=== PATIENT | female | born 1940 | race Caucasian/White ===

== ENCOUNTER 2024-05-23 11:22 | Inpatient (IN) | payer MEDICARE, MEDICAID, SELFPAY ==
[2024-05-23] VITALS (15 sets, daily range): BP systolic 115–142; BP diastolic 52–88; PULSE 73–109; RESP 16–98; TEMP 36.6–36.7; O2SAT 93–100; BMI 30.2
--- NOTE | 2024-05-23 11:45 | PC.NURSE ---
Patient brief changed, soiled of large black stool, clean dry brief applied and patient placed in POC, call light placed within reach, provider made aware of black stool.
--- NOTE | 2024-05-23 11:56 | EKG_ITS ---
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
[2024-05-23 12:20] LABS: OBG Card Lot # 20632; OBG Performed By BOTED; OBG QC OK? Yes; OBS Developer Lot # 124; OBS Performed By BOTED; OBS QC OK? Yes; Occult Blood, Stool Positive (Negative)
[2024-05-23 12:21] LABS: Occult Blood, Gastric Positive (Negative)
--- NOTE | 2024-05-23 12:45 | PD.EDADULT ---
ED General RME/HPI General Chief complaint: Nausea/Vomiting/Diarrhea Stated complaint: NAUSEA/VOMITING Arrival date/time: 05/23/24 11:22 RME / HPI RME / HPI narrative: Patient is 83 years old female with past medical history of hypertension, chronic A-fib on Eliquis, type 2 diabetes, COPD presented to the ED from SNF due to upper and lower GI bleeding. Per EMS patient developed bloody emesis and melena today morning. No other information is available. Patient is on Eliquis for chronic A-fib. She is somnolent and reports abdominal pain throughout. She denies fever, chills, chest pain, shortness of breath. POLST form is present with the patient and states she is DNR/DNI with selective treatment. Related Data Home Medications ?Medication ?Instructions ?Recorded ?Confirmed Lactobacillus rhamnosus GG 10 1 cap PO QDAY #0 caps 05/02/16 01/04/21 billion cell capsule (Culturelle) insulin glargine 100 unit/mL 18 unit subcut QAM #0 vials 05/02/16 01/04/21 subcutaneous solution (Lantus U-100 Insulin) nitroglycerin 0.4 mg sublingual 0.4 mg SL PRN PRN Chest Pain #0 05/02/16 01/04/21 tablet (Nitrostat) tabs digoxin 125 mcg (0.125 mg) tablet 125 mcg PO UD ##0 10/14/16 01/04/21 hydrocodone 7.5 mg-acetaminophen 1 tab PO Q6H PRN Pain #0 tabs 10/14/16 01/04/21 300 mg tablet acetaminophen 325 mg tablet 650 mg PO Q6H PRN pain or fever 01/04/21 01/04/21 (Tylenol) cranberry extract 425 mg capsule 425 mg PO QDAY 01/04/21 01/04/21 docusate sodium 250 mg capsule 250 mg PO BID 01/04/21 01/04/21 ferrous sulfate 325 mg (65 mg 325 mg PO BID 01/04/21 01/04/21 iron) tablet insulin lispro 100 unit/mL 10 unit subcut USEASDIRECTD 01/04/21 01/04/21 subcutaneous solution (Humalog U-100 Insulin) magnesium hydroxide 400 mg/5 mL 30 ml PO Q72H PRN Constipation 01/04/21 01/04/21 oral suspension (Milk of Magnesia) metformin 1,000 mg tablet 1,000 mg PO BID 01/04/21 01/04/21 sodium chloride 0.65 % nasal spray 2 spray intranasal BID 01/04/21 01/04/21 aerosol (Saline Nasal Mist) sodium phosphates 19 gram-7 118 ml AK Q72H PRN Constipation 01/04/21 01/04/21 gram/118 mL enema (Fleet Enema) trolamine salicylate 10 % topical 1 applic topical Q4H PRN knee pain 01/04/21 01/04/21 cream (Aspercreme) verapamil 240 mg tablet,extended 240 mg PO QDAY 01/04/21 01/04/21 release Previous Rx's ?Medication ?Instructions ?Recorded apixaban 2.5 mg tablet (Eliquis) 2.5 mg PO BID #30 tabs 01/10/21 verapamil 120 mg tablet,extended 240 mg (2 x 120 mg) PO QDAY #60 01/10/21 release tabs Allergies Allergy/AdvReac Type Severity Reaction Status Date / Time warfarin AdvReac Mild PT Verified 01/04/21 10:21 EXPERIENCE BLEEDING WITH COUMADIN Review of Systems Review of Systems Systems Reviewed: All systems reviewed, normal except as documented ED Exam Narrative Physical exam: Gen: Well-developed and well-nourished elderly female. HEENT: NCAT, PERRLA, EOMI, MMM, anicteric conjunctivae, blood in oral cavity. CVS: normal S1 and S2. Irregularly irregular. No M/R/G. Resp: CTA B/L. No rhonchi, rales, crackles or wheezing. Abd: soft, tender throughout, non-distended. BS+ in all 4 quadrants. MSK: Good ROM in BUE & BLE. No edema or rash. Neuro: CN II-XII grossly intact. Strength 5/5 in BUE & BLE. Alert and oriented x1 to self. Course Quality Measures none Orders Category Date Time Status Admit to Inpatient Status Routine Admission 05/23/24 16:19 Active Patient Condition Routine Admission 05/23/24 16:19 Ordered Aspiration precautions ONCE Care 05/23/24 16:32 Active COVID-19 Screening Questionnaire NOW Care 05/23/24 15:49 Active Continuous Pulse Oximetry NOW Care 05/23/24 16:19 Completed Decision to Admit X1 Care 05/23/24 15:49 Completed EKG (ED ONLY) *Do not use* NOW Care 05/23/24 11:56 Completed In and Out Catheter X1 Care 05/23/24 14:08 Completed Insert IV NOW Care 05/23/24 13:01 Active NPO NOW Care 05/23/24 16:21 Active Notify provider NEEDED Care 05/23/24 16:19 Active Post Transfusion H&H X1 Care 05/23/24 15:58 Active Sequential Compression Device QSHIFT Care 05/23/24 16:24 Active Transfuse,blood/blood products NOW Care 05/23/24 15:58 Active Consult to Gastroenterology Stat Cons 05/23/24 13:44 Ordered Diet NPO (NOW) Diet 05/23/24 16:21 Active EKG (ED Only) Stat Exams 05/23/24 11:56 Draft XR chest 1V Stat Exams 05/23/24 13:17 Completed Blood Culture (Lab) Stat Lab 05/23/24 13:15 Received CBC AM DRAW Lab 05/24/24 05:00 Ordered CBC AM DRAW Lab 05/25/24 05:00 Ordered CBC AM DRAW Lab 05/26/24 05:00 Ordered CBC Stat Lab 05/23/24 12:50 Completed CMP [Comprehensive Metabolic Panel] Stat Lab 05/23/24 12:50 Completed Hemoglobin and Hematocrit Stat Lab 05/23/24 15:43 Completed INR [Prothrombin Time with INR] Stat Lab 05/23/24 12:50 Completed Lactate (Lactic Acid) Stat Lab 05/23/24 12:50 Completed Lactic Acid [Lactate (Lactic Acid)] Q3H Lab 05/23/24 19:29 Ordered Lactic Acid [Lactate (Lactic Acid)] Q3H Lab 05/23/24 22:29 Ordered Lactic Acid [Lactate (Lactic Acid)] Q3H Lab 05/24/24 01:29 Ordered Lactic Acid [Lactate (Lactic Acid)] Q3H Lab 05/24/24 04:29 Ordered Lactic Acid [Lactate (Lactic Acid)] Q3H Lab 05/24/24 07:29 Ordered Lactic Acid, 3 HR Stat Lab 05/23/24 17:12 Received Magnesium AM DRAW Lab 05/24/24 05:00 Ordered Magnesium [Magnesium] Stat Lab 05/23/24 12:50 Completed Occult Blood, Gastric (LAB) Stat Lab 05/23/24 12:00 Completed Occult Blood, Stool (LAB) Stat Lab 05/23/24 12:00 Completed PTT [Partial Thromboplastin Time] Stat Lab 05/23/24 12:50 Completed Renal Function Panel AM DRAW Lab 05/24/24 05:00 Ordered Renal Function Panel AM DRAW Lab 05/25/24 05:00 Ordered Renal Function Panel AM DRAW Lab 05/26/24 05:00 Ordered Troponin I Q6H Lab 05/23/24 17:12 Received Troponin I Q6H Lab 05/23/24 23:00 Ordered Troponin I Stat Lab 05/23/24 12:50 Completed Type and Screen Stat Lab 05/23/24 12:50 Results Urinalysis Stat Lab 05/23/24 14:06 Completed Urine Culture Routine Lab 05/23/24 16:25 Ordered rbc [Red Blood Cells] Stat Lab 05/23/24 12:50 Results Acetaminophen Supp [Tylenol Supp] Med 05/23/24 16:19 Active 650 mg AK Q6HR PRN Albuterol/Ipratr Rt Marina [Duoneb Rt Marina] Med 05/23/24 16:31 Discontinued 5 ml INH X1 ONE Magnesium Sulfate 4 GM Ivpb [Magnesium Sulfate Ivpb] Med 05/23/24 16:29 Active 4 gm in 50 ml IV X1 Ondansetron Inj [Zofran Inj] Med 05/23/24 16:19 Active 4 mg IV Q6H PRN Pantoprazole Inj [Protonix Inj] Med 05/23/24 21:00 Active 40 mg IVP Q12HR Pantoprazole/Ns 80Mg IV Premix [Protonix/NS 80mg IV Med 05/23/24 12:40 Active Premix] 80 mg in 100 ml IV X1 Pantoprazole/Ns 80Mg IV Premix [Protonix/NS 80mg IV Med 05/23/24 12:40 Discontinued Premix] 80 mg in 100 ml IV X1 Ringers Lactated 1000 ml [Lactated Ringers] 1,000 ml Med 05/23/24 16:22 Active IV 75 mls/hr Sodium Chloride 0.9% 1000 ml [Ns] 1,000 ml Med 05/23/24 13:14 Discontinued IV 999 mls/hr Sodium Chloride 0.9% [Ns] 100 ml Med 05/24/24 12:45 Pending Octreotide Acet Inj [SandoSTATIN Inj] 1,000 mcg IV 50 mcg/hr cefTRIAXone [Rocephin] 1,000 mg Med 05/23/24 13:45 Discontinued SODIUM CHLORIDE 0.9% (Popper) [Ns 0.9% (P)] 50 ml IV X1 Code Status Routine Oth 05/23/24 16:19 Ordered Oxygen Delivery DAILY RT 05/23/24 16:21 Active Vital Signs Vital signs: Vital Signs Temperature 98.1 F 05/23/24 11:38 Pulse Rate 109 H 05/23/24 11:38 Respiratory Rate 18 05/23/24 11:38 Blood Pressure 129/68 05/23/24 11:38 Pulse Oximetry (%) 98 05/23/24 11:38 Oxygen Delivery Method Room Air 05/23/24 11:38 [facility] Patient data External records reviewed:: [facility] previous records, EMS form and Group Home records Clinical information provided by:: patient Social determinants that could affect healthcare access:: none Patient has the following chronic illnesses:: hypertension, chronic A-fib on Eliquis, type 2 diabetes, COPD How is presenting disease/condition affected by chronic disease/condition?: exacerbated by Evaluation data The following diagnostics were reviewed and interpreted by me:: lab results, radiology exam(s) and EKG tracing(s) Lab and/or radiology exams considered but not ordered:: CT abdomen angio Interpretation Summary: Severe blood loss anemia, lactic acidosis of 11, hyperkalemia, BUN 110, ELBA, troponinemia, UTI, Afib with RVR. Medications Medications considered but not ordered:: na Medication administrations:: Medication Administration History Acetaminophen (Acetaminophen Supp 650 Mg Supp) 650 mg AK Q6HR PRN PRN Reason: Fever > 100.4 Stop: 06/22/24 16:18 Pantoprazole Sodium (Protonix/Ns 80mg Iv Premix) 80 mg in 100 mls @ 10 mls/hr IV X1 ONE Stop: 05/23/24 22:39 Last Admin: 05/23/24 13:39 Dose: 10 mls/hr Documented By: YUKI Magnesium Sulfate (Magnesium Sulfate Ivpb) 4 gm in 50 mls @ 12.5 mls/hr IV X1 ONE Stop: 05/23/24 20:28 Last Admin: 05/23/24 16:43 Dose: 12.5 mls/hr Documented By: YUKI Octreotide Acetate 1,000 mcg/ (Sodium Chloride) 102 mls @ 5.1 mls/hr IV .Q20H ROCK; Protocol Stop: 06/23/24 12:44 Lactated Ringer's (Lactated Ringers) 1,000 mls @ 75 mls/hr IV .[id number] ONE Stop: 05/24/24 05:41 Octreotide Acetate 1,000 mcg/ (Sodium Chloride) 102 mls @ 5.1 mls/hr IV .Q20H ONE; Protocol Stop: 05/24/24 12:44 Ceftriaxone Sodium/Dextrose (Rocephin/D5w 1gm Iv Premix) 1 gm in 50 mls @ 100 mls/hr IV QDAY ROCK Stop: 05/31/24 08:59 Ondansetron HCl (Ondansetron Inj 2 Mg/Ml Inj 2 Ml) 4 mg IV Q6H PRN; Protocol PRN Reason: NAUSEA OR VOMITING Stop: 06/22/24 16:18 Pantoprazole Sodium (Pantoprazole Inj 40 Mg Vial) 40 mg IVP Q12HR ROCK Stop: 06/22/24 20:59 Discontinued Medications Albuterol/Ipratropium (Albuterol/Ipratropium (Duoneb) Rt Marina 3 Ml Nebu) 5 ml INH X1 ONE Stop: 05/23/24 16:32 Last Admin: 05/23/24 16:40 Dose: 5 ml Documented By: MERT Pantoprazole Sodium (Protonix/Ns 80mg Iv Premix) 80 mg in 100 mls @ 400 mls/hr IV X1 ONE Stop: 05/23/24 12:54 Last Infusion: 05/23/24 13:39 Dose: Infused Documented By: Admin: 05/23/24 13:20 Dose: 400 mls/hr Documented By: YUKI Ceftriaxone Sodium 1,000 mg/ (Sodium Chloride) 50 mls @ 100 mls/hr IV X1 ONE Stop: 05/23/24 14:14 Last Infusion: 05/23/24 14:51 Dose: Infused Documented By: Admin: 05/23/24 13:42 Dose: 100 mls/hr Documented By: YUKI Sodium Chloride (Ns) 1,000 mls @ 999 mls/hr IV .Q1H1M ONE Stop: 05/23/24 14:14 Last Infusion: 05/23/24 14:51 Dose: Infused Documented By: Admin: 05/23/24 13:32 Dose: 999 mls/hr Documented By: DB as above Consultations Consultation(s) initiated? (list below): Yes Consultation #1 (Physician, Specialty, Details): Dr. Knight, GI, GI bleeding. Diagnosis Differential Diagnosis ED Complaint MDM: Ischemic colitis, gastric ulcer, esophageal tear Most likely diagnosis given after review of the tests above:: Ischemic colitis Admission Indicated Admission indicated?: indicated Explain why admission is indicated or not indicated:: Patient developed significant blood loss anemia requiring blood transfusion. Due to bloody emesis and melena she also needs GI evaluation and workup to establish source of bleeding. Patient's CODE STATUS is DNR/DNI with selective treatment therefore admission will be done to medical floor. Admission Request Was there a request for admission?: Yes Admission Attestation Admission request attestation: Discussed case with [] from Hospitalist service regarding admission. Discussed patients ED course, exam findings, labs, and radiology results. The Hospitalist [agrees,declines] to accept the patient for admission. Disposition Plan Disposition Plan: Admit Medical Decision Making MDM Narrative MDM Narrative: The patient is an 83-year-old female with a history of hypertension, chronic atrial fibrillation on Eliquis, type 2 diabetes, and COPD, who presented from her senior care facility (SNF) with upper and lower gastrointestinal bleeding. Per EMS report, the patient developed bloody emesis and melena this morning. She is somnolent and reports abdominal pain throughout but denies fever, chills, chest pain, or shortness of breath. The patient has a POLST form indicating DNR/DNI status with selective treatment. Physical examination revealed blood in the oral cavity, somnolence, abdominal tenderness, and irregularly irregular heart rhythm. Workup demonstrated severe blood loss anemia, lactic acidosis (11), hyperkalemia, elevated BUN (110) with acute kidney injury (ELBA), troponinemia, urinary tract infection (UTI), and atrial fibrillation with rapid ventricular response (RVR). The patient requires blood transfusion to address severe anemia. GI evaluation is necessary to identify and manage the source of bleeding. This will include imaging and possible endoscopic procedures, as guided by the gastroenterology. Given the patient's DNR/DNI status, care will focus on selective treatment and stabilization, avoiding invasive or aggressive measures. The plan will be discussed with the family and SNF to ensure alignment with her goals of care. Admission to the medical floor for close monitoring, blood transfusion, GI workup, and further management of her complex clinical presentation. The patient and her family will be kept informed of her condition and treatment plan, and all interventions will remain consistent with her stated goals of care. Differential Diagnosis Differential Diagnosis: Ischemic colitis, gastric ulcer, esophageal tear Lab Data 05/23/24 15:43 05/23/24 12:50 Labs: Lab Results 05/23/24 05/23/24 05/23/24 Range/Units 12:00 12:50 14:06 WBC 10.3 (3.6-11.0) Thou/mm3 RBC 2.39 L (4.00-5.20) Miln/mm3 Hgb 7.9 L (12.0-16.0) g/dL Hct 25.1 L (36.0-46.0) % MCV 105 H (80-100) fL MCH 33.1 (25.0-35.0) pg MCHC 31.5 (31.0-37.0) g/dl RDW Std Deviation 55.6 H (36.4-46.3) fL Plt Count 187 (140-440) Thou/mm3 Neut % (Auto) 77 (37-80) % Lymph % (Auto) 13 (10-50) % [place] % (Auto) 9 (0-12) % Eos % (Auto) 0 (0-10) % Baso % (Auto) 0 (0-2.5) % Neut # (Auto) 8.0 H (1.8-7.7) Thou/mm3 Lymph # (Auto) 1.3 (1.0-4.8) Thou/mm3 [place] # (Auto) 1.0 H (0.0-0.8) Thou/mm3 Eos # (Auto) 0.0 (0.0-0.5) Thou/mm3 Baso # (Auto) 0.0 (0.0-0.2) Thou/mm3 Immature Gran # (Auto) 0.08 H (0.00-0.00) Thou/mm3 Absolute Nucleated RBC 0.00 (0.00-0.00) Thou/mm3 Immature Gran % 1 H (0-0) % Nucleated RBC % 0 (0) /100 WBC PT 11.7 (9.0-12.2) Seconds INR 1.1 (0.9-1.3) APTT 26.1 (22.0-36.0) Seconds Sodium 143 (136-145) mMol/L Potassium 5.2 H (3.4-5.1) mMol/L Chloride 98 (98-107) mMol/L Carbon Dioxide 23.3 (20.0-31.0) mMol/L Anion Gap 22 H (7-16) BUN 110 H* (9-23) mg/dL Creatinine 1.9 H (0.6-1.3) mg/dL Estim Creat Clear Calc 20.9 L (>60) mL/min eGFR 26 L (60 - ) See Note BUN/Creatinine Ratio 58 H (12-20) Ratio Glucose 134 H (74-106) mg/dL Calculated Osmolality 321 H (275-295) Lactic Acid 11.0 H* (0.4-2.0) mMol/L Calcium 10.7 H (8.3-10.6) mg/dL Corrected Calcium 10.9 H (8.5-10.1) mg/dL Magnesium 1.6 (1.6-2.6) mg/dL Total Bilirubin 0.3 (0.3-1.2) mg/dL AST 20 (0-34) U/L ALT 12 (10-49) U/L Alkaline Phosphatase 52 (46-116) U/L Troponin I 0.054 H* (0.0-0.045) ng/mL Total Protein 6.1 (5.7-8.2) gm/dL Albumin 3.8 (3.4-4.8) gm/dL Globulin 2.3 (2.3-3.5) gm/dL Albumin/Globulin Ratio 1.7 (1.2-2.2) Ur Collection Type Catheter Urine Color Lt-Yellow (Lt Yel-Yel) Urine Clarity Cloudy A (Clear/Hazy) Urine pH 5.0 (5.0-7.0) Ur Specific [place] 1.011 (1.001-1.035) Urine Protein Negative (Neg - Trace) Urine Glucose (UA) Negative (Negative) Urine Ketones Trace (Negative) Urine Blood 1+ A (Negative) Urine Nitrite Negative (Negative) Urine Bilirubin Negative (Negative) Urine Urobilinogen (Auto) Negative (0.0-1.0) mg/dL Ur Leukocyte Esterase Positive (Negative) Urine RBC 3 (0-3) /hpf Urine WBC 911 H (0-5) /hpf Ur Squamous Epith Cells 1 (0-5) /hpf Urine Bacteria Rare (None) Gastric Occult Blood Positive A (Negative) Stool Occult Blood Positive A (Negative) Blood Type A Positive Antibody Screen NEGATIVE Blood Bank Wristband ID Yes 05/23/24 Range/Units 15:43 WBC (3.6-11.0) Thou/mm3 RBC (4.00-5.20) Miln/mm3 Hgb 6.8 L* (12.0-16.0) g/dL Hct 21.1 L* (36.0-46.0) % MCV (80-100) fL MCH (25.0-35.0) pg MCHC (31.0-37.0) g/dl RDW Std Deviation (36.4-46.3) fL Plt Count (140-440) Thou/mm3 Neut % (Auto) (37-80) % Lymph % (Auto) (10-50) % [place] % (Auto) (0-12) % Eos % (Auto) (0-10) % Baso % (Auto) (0-2.5) % Neut # (Auto) (1.8-7.7) Thou/mm3 Lymph # (Auto) (1.0-4.8) Thou/mm3 [place] # (Auto) (0.0-0.8) Thou/mm3 Eos # (Auto) (0.0-0.5) Thou/mm3 Baso # (Auto) (0.0-0.2) Thou/mm3 Immature Gran # (Auto) (0.00-0.00) Thou/mm3 Absolute Nucleated RBC (0.00-0.00) Thou/mm3 Immature Gran % (0-0) % Nucleated RBC % (0) /100 WBC PT (9.0-12.2) Seconds INR (0.9-1.3) APTT (22.0-36.0) Seconds Sodium (136-145) mMol/L Potassium (3.4-5.1) mMol/L Chloride (98-107) mMol/L Carbon Dioxide (20.0-31.0) mMol/L Anion Gap (7-16) BUN (9-23) mg/dL Creatinine (0.6-1.3) mg/dL Estim Creat Clear Calc (>60) mL/min eGFR (60 - ) See Note BUN/Creatinine Ratio (12-20) Ratio Glucose (74-106) mg/dL Calculated Osmolality (275-295) Lactic Acid (0.4-2.0) mMol/L Calcium (8.3-10.6) mg/dL Corrected Calcium (8.5-10.1) mg/dL Magnesium (1.6-2.6) mg/dL Total Bilirubin (0.3-1.2) mg/dL AST (0-34) U/L ALT (10-49) U/L Alkaline Phosphatase (46-116) U/L Troponin I (0.0-0.045) ng/mL Total Protein (5.7-8.2) gm/dL Albumin (3.4-4.8) gm/dL Globulin (2.3-3.5) gm/dL Albumin/Globulin Ratio (1.2-2.2) Ur Collection Type Urine Color (Lt Yel-Yel) Urine Clarity (Clear/Hazy) Urine pH (5.0-7.0) Ur Specific [place] (1.001-1.035) Urine Protein (Neg - Trace) Urine Glucose (UA) (Negative) Urine Ketones (Negative) Urine Blood (Negative) Urine Nitrite (Negative) Urine Bilirubin (Negative) Urine Urobilinogen (Auto) (0.0-1.0) mg/dL Ur Leukocyte Esterase (Negative) Urine RBC (0-3) /hpf Urine WBC (0-5) /hpf Ur Squamous Epith Cells (0-5) /hpf Urine Bacteria (None) Gastric Occult Blood (Negative) Stool Occult Blood (Negative) Blood Type Antibody Screen Blood Bank Wristband ID Critical Care Time Critical Care Time Critical Care Time: Yes Total Critical Care Time (min.): 45 Attestation: The high probability of sudden, clinically significant deterioration in the patient?s condition required the highest level of my preparedness to intervene urgently. The services I provided to this patient were to treat and/or prevent clinically significant deterioration. Services included the following: chart data review, reviewing nursing notes and/or old charts, documentation time, functional consultant collaboration regarding findings and treatment options, medication orders and management, direct patient care, vital sign assessments and ordering, interpreting and reviewing diagnostic studies and lab tests. Aggregate critical care time includes only time during which I was engaged in work directly related to the patient?s care, as described above, whether at bedside or elsewhere in the Emergency Department. It did not include time spent performing other reported procedures or the services of residents, students, nurses or physician assistants. Discharge Plan Plan Patient Disposition: Admit Acute Care w/in Hospital Problem List Clinical Impression: Severe anemia, Do not resuscitate status, Melena, Bloody vomitus MD Attestation MD Attestation The patient was seen by the PGY-2. I, the co-signing physician, also encountered and examined the patient remaining present during the entire ER visit for consultation as needed. I agree with the plan and documentation.
[2024-05-23 13:12] LABS: Basophils % (Auto) 0 % (0-2.5); Eosinophils % (Auto) 0 % (0-10); Hematocrit 25.1 % (36.0-46.0); Immature Granulocytes % (Auto) 1 % (0-0); Immature Granulocytes Auto 0.08 Thou/mm3 (0.00-0.00); Lymphocytes # (Auto) 1.3 Thou/mm3 (1.0-4.8); Lymphocytes % (Auto) 13 % (10-50); Mean Corpuscular HGB Conc 31.5 g/dl (31.0-37.0); Mean Corpuscular Hemoglobin 33.1 pg (25.0-35.0); Mean Corpuscular Volume 105 fL (80-100); Monocytes % (Auto) 9 % (0-12); Neutrophils % (Auto) 77 % (37-80); Nucleated Red Blood Cell % 0 /100 WBC (0); Platelet Count 187 Thou/mm3 (140-440); RDW Standard Deviation 55.6 fL (36.4-46.3); Red Blood Count 2.39 Miln/mm3 (4.00-5.20); White Blood Count 10.3 Thou/mm3 (3.6-11.0)
[2024-05-23 13:13] LABS: Hemoglobin 7.9 g/dL (12.0-16.0)
--- NOTE | 2024-05-23 13:17 | XR_ITS ---
EXAMINATION: AP chest single view Technique one AP portable semiupright chest single view Exam date and time: May 23, 2024 at 1313 hours Comparison January 03, 2021 INDICATIONS: Sepsis today. FINDINGS: Suspicious for early right base pneumonia Chronic calcifications in the right upper lobe Mild enlargement left ventricle moderate enlargement left atrium Moderate vascular engorgement centrally IMPRESSION: Early pneumonia right base
[2024-05-23] MEDS: PANTOPRAZOLE/NS 80MG IV PREMIX 80 MG/100 ML BAG 400 MG IV (13:20)
[2024-05-23 13:30] LABS: INR 1.1 (0.9-1.3); Partial Thromboplastin Time 26.1 Seconds (22.0-36.0); Prothrombin Time 11.7 Seconds (9.0-12.2)
[2024-05-23] MEDS: SODIUM CHLORIDE 0.9% 1000 ML 1,000 ML 999 ML IV (13:32)
[2024-05-23 13:39] LABS: Alanine Aminotransferase 12 U/L (10-49); Albumin, Serum 3.8 gm/dL (3.4-4.8); Albumin/Globulin Ratio 1.7 (1.2-2.2); Alkaline Phosphatase 52 U/L (46-116); Anion Gap 22 (7-16); Aspartate Amino Transferase 20 U/L (0-34); BUN/Creatinine Ratio 58 Ratio (12-20); Bilirubin,Total 0.3 mg/dL (0.3-1.2); Calcium 10.7 mg/dL (8.3-10.6); Calcium (Corrected) 10.9 mg/dL (8.5-10.1); Carbon Dioxide 23.3 mMol/L (20.0-31.0); Chloride 98 mMol/L (98-107); Creatinine (Component) 1.9 mg/dL (0.6-1.3); Estimated Creatinine Clearance 20.9 mL/min (>60); Globulin 2.3 gm/dL (2.3-3.5); Glucose 134 mg/dL (74-106); Magnesium 1.6 mg/dL (1.6-2.6); Osmolality,Calculated 321 (275-295); Potassium 5.2 mMol/L (3.4-5.1); Sodium 143 mMol/L (136-145); Total Protein 6.1 gm/dL (5.7-8.2); eGFR 26 See Note
[2024-05-23] MEDS: PANTOPRAZOLE/NS 80MG IV PREMIX 80 MG/100 ML BAG 10 MG IV (13:39)
[2024-05-23 13:41] LABS: Blood Urea Nitrogen 110 mg/dL (9-23)
[2024-05-23] MEDS: cefTRIAXone 1,000 MG in SODIUM CHLORIDE 0.9% (Popper) 50 ML 100 MG IV (13:42)
[2024-05-23 13:45] LABS: Troponin I 0.054 ng/mL (0.0-0.045)
[2024-05-23 14:28] LABS: Collection Type, Urine Catheter
[2024-05-23 14:37] LABS: Bacteria,Urine Rare; Bilirubin,Urine Negative (Negative); Blood,Urine 1+ (Negative); Glucose, Urine Negative (Negative); Ketones,Urine Trace (Negative); Leukocyte Esterase,Urine Positive (Negative); Nitrite,Urine Negative (Negative); Protein,Urine Negative (Neg - Trace); RBC,Urine 3 /hpf (0-3); Specific Gravity,Urine 1.011 (1.001-1.035); Squamous Epithelial Cell,Urine 1 /hpf (0-5); Urobilinogen,Urine Negative mg/dL (0.0-1.0); WBC,Urine 911 /hpf (0-5)
[2024-05-23 15:02] LABS: Clarity,Urine Cloudy (Clear/Hazy); Color,Urine Lt-Yellow (Lt Yel-Yel)
[2024-05-23 15:52] LABS: Hematocrit 21.1 % (36.0-46.0)
[2024-05-23 15:57] LABS: Hemoglobin 6.8 g/dL (12.0-16.0)
[2024-05-23 16:04] LABS: Reflex Lactate? Y
--- NOTE | 2024-05-23 16:32 | ESHP_ITS ---
Documentation for date of: 05/23/24 [facility] History of Present Illness Chief complaint: AMS, upper and lower GI bleed History of present illness: This patient is a 83-year-old female with past medical history of hypertension, chronic A-fib on Eliquis, type 2 diabetes, COPD presented to the ED on 05/23/2024 from [facility] with chief complaint of altered mental status as well as upper and lower GI bleeding. Per EMS patient developed bloody emesis and melena today this morning. Limited history could be taken as patient is not alert and somnolent. Patient is currently on Eliquis for chronic A-fib. She grimaces on abdominal palpation. Daughter was at the bedside and reported that her baseline is usually only to herself. POLST form from [facility] states as DNR/DNI with selective treatment. No fever chills or chest pain or shortness of breath was reported. Attending physician spoke to the patient's daughter and explained that patient is severely sick at this time and will likely reach out to GI specialist in terms of requiring invasive procedures like EGD and colonoscopy. Currently we will try to conservatively manage and transfuse blood. Daughter was agreeable to the plan. In the ED, patient was mildly hypotensive, tachycardic, breathing comfortably and saturating well on room air. Patient was afebrile. Labs showed blood loss with hemoglobin 7.9 dropped to 6.8, stable white count. Chemistry panel was showing hyperkalemia, anion gap of 22, azotemia with BUN 110 and creatinine 1.9 baseline 0.9 in 2020. Previous kidney functions in 2020 shows GFR 30?50. Glucose 134. Lactic acid of 11. Magnesium 1.6. Troponin I 0.054. UA was cloudy with blood and pyuria 911. Rare bacteria. FOBT positive. Chest x-ray showed right base pneumonia. EKG showed A-fib rate controlled rate at 103. RBBB. QTc 500. Blood cultures were ordered. Flu and COVID negative. Patient came with tachycardia had an endorgan damage likely kidney dysfunction with possible source UTI. PMH: As above PSH: Hysterectomy SH: Limited history available Allergies: Warfarin causes bleeding Home medications: Gurley, nitroglycerin, pantoprazole, probiotic, saline nasal spray, ipratropium?albuterol, Tylenol, Zofran and Eliquis Patient is admitted for further workup and management of acute blood loss anemia and UTI Review of Systems Review of Systems Systems Reviewed: All systems reviewed, normal except as documented Past Medical History Past Medical History NEUROLOGIC: Negative Meningitis or Multiple Sclerosis CARDIAC: Positive Cardiac Arrhythmia, Atrial Fibrillation, Atherosclerotic Heart Disease, Hypercholesterolemia, Congestive Heart Failure and Hypertension; Negative Aneurysm or Valvular Heart Disease RESPIRATORY: Positive Respiratory Disorders (home 02); Negative Chronic Obstructive Pulmonary Disease (COPD) or Emphysema GASTROINTESTINAL: Positive Gall Bladder Disease and Obesity; Negative Hepatitis GENITOURINARY: Negative Renal Disease REPRODUCTIVE: Positive Previous Pregnancies MUSCULOSKELETAL: Negative Muscular Dystrophy or Bone Cancer ENT: Negative History of ENT Problems or Blind ENDOCRINE: Positive Diabetes Mellitus Type 2; Negative Endocrine Disorders or Diabetes Mellitus Type 1 HEMATOLOGIC: Negative Blood Disorders PSYCHO/SOCIAL: Positive Depression and Anxiety OTHER HISTORY: Positive Lung Cancer; Negative Down Syndrome or Developmental Delay Family History OTHER FAMILY HX: Father had heart disease Social History SOCIAL: Denies smoking, alcohol use, illicit drug use SMOKING STATUS: Unknown if ever smoked Travel History EBOLA RISK: No Past Medical History Comments PMH COMMENT: hypertension, insulin-dependent type 2 diabetes mellitus, A. fib on Eliquis Exam Vital Signs Temp Pulse Resp BP Pulse Ox O2 Del Method 98.0 F 83 18 136/62 H 95 Room Air 05/23/24 16:11 05/23/24 16:11 05/23/24 16:11 05/23/24 16:11 05/23/24 16:11 05/23/24 16:11 Narrative Exam GENERAL APPEARANCE: Patient is not alert and somnolent. sat well on RA. HEENT: NC, AT. Dry mucus membrane. EOMI, clear conjunctiva, poor oral hygiene. NECK: Supple without lymphadenopathy. No stiffness or restricted ROM. HEART: sinus tacycardia with regular rhythm, normal S1/S2, no m/r/g LUNGS: CTAB, moving air well. No crackles or wheezes are heard. ABDOMEN: Soft, nontender, nondistended with good bowel sounds heard. BACK: No CVAT, no obvious deformity. EXTREMITIES: B/l Chronic venous stasis NEUROLOGICAL: Grossly nonfocal. somnolent , CN not formally tested but appear grossly intact. Skin: Chronic venous stasis with trace edema Psych: unable to asses Results: Labs 05/24/24 07:55 05/24/24 07:55 Labs: Short CBC 05/23/24 05/23/24 Range/Units 12:50 15:43 WBC 10.3 (3.6-11.0) Thou/mm3 Hgb 7.9 L 6.8 L* (12.0-16.0) g/dL Hct 25.1 L 21.1 L* (36.0-46.0) % Plt Count 187 (140-440) Thou/mm3 BMP 05/23/24 12:50 Sodium 143 Potassium 5.2 H Chloride 98 Carbon Dioxide 23.3 BUN 110 H* Creatinine 1.9 H Glucose 134 H Calcium 10.7 H Cardiac Enzymes 05/23/24 Range/Units 12:50 Troponin I 0.054 H* (0.0-0.045) ng/mL Liver Function 05/23/24 Range/Units 12:50 Total Bilirubin 0.3 (0.3-1.2) mg/dL AST 20 (0-34) U/L ALT 12 (10-49) U/L Alkaline Phosphatase 52 (46-116) U/L Albumin 3.8 (3.4-4.8) gm/dL Urine 05/23/24 Range/Units 14:06 Urine Color Lt-Yellow (Lt Yel-Yel) Urine Clarity Cloudy A (Clear/Hazy) Urine pH 5.0 (5.0-7.0) Ur Specific [place] 1.011 (1.001-1.035) Urine Protein Negative (Neg - Trace) Urine Glucose (UA) Negative (Negative) Quality Measures Quality Measures VTE prophylaxis (SCDs) Advance care planning discussed with:: other Medications Home Medications and Allergies Home Medications ?Medication ?Instructions ?Recorded ?Confirmed ?Type Lactobacillus rhamnosus GG 10 1 cap PO QDAY #0 caps 01/04/21 History billion cell capsule (Culturelle) insulin glargine 100 unit/mL 18 unit subcut QAM #0 via ls 05/02/16 01/04/21 History subcutaneous solution (Lantus U-100 Insulin) nitroglycerin 0.4 mg sublingual 0.4 mg SL PRN PRN Ches t Pain #0 05/02/16 01/04/21 History tablet (Nitrostat) tabs digoxin 125 mcg (0.125 mg) tablet 125 mcg PO UD ##0 01/04/21 History hydrocodone 7.5 mg-acetaminophen 1 tab PO Q6H PRN Pain #0 tabs 10/14/16 01/04/21 History 300 mg tablet acetaminophen 325 mg tablet 650 mg PO Q6H PRN pain or fever 01/04/21 01/04/21 History (Tylenol) cranberry extract 425 mg capsule 425 mg PO QDAY 01/04/21 History docusate sodium 250 mg capsule 250 mg PO BID 01/04/21 01/04/21 History ferrous sulfate 325 mg (65 mg 325 mg PO BID 01/04/21 1 03/06/20 History iron) tablet insulin lispro 100 unit/mL 10 unit subcut USEASDIRECTD 01/04/21 01/04/21 History subcutaneous solution (Humalog U-100 Insulin) magnesium hydroxide 400 mg/5 mL 30 ml PO Q72H PRN Cons tipation 01/04/21 01/04/21 History oral suspension (Milk of Magnesia) metformin 1,000 mg tablet 1,000 mg PO BID 01/04/2104/25 History sodium chloride 0.65 % nasal spray 2 spray intranasal BID 01/04/21 01/04/21 History aerosol (Saline Nasal Mist) sodium phosphates 19 gram-[address] Q72H PRN Constip ation 01/04/21 01/04/21 History gram/118 mL enema (Fleet Enema) trolamine salicylate 10 % topical 1 applic topical Q4H PRN knee pain 01/04/21 01/04/21 History cream (Aspercreme) verapamil 240 mg tablet,extended 240 mg PO QDAY 01/04/21 History release Allergies Allergy/AdvReac Type Severity Reaction Status Date / Time warfarin AdvReac Mild PT Verified 01/04/21 10:21 EXPERIENCE BLEEDING WITH COUMADIN Visit Medications Albuterol/Ipratropium (Albuterol/Ipratropium (Duoneb) Rt Marina 3 Ml Nebu) 5 ml INH X1 ONE Stop: 05/23/24 16:32 Pantoprazole Sodium (Protonix/Ns 80mg Iv Premix) 80 mg in 100 mls @ 10 mls/hr IV X1 ONE Stop: 05/23/24 22:39 Last Admin: 05/23/24 13:39 Dose: 10 mls/hr Magnesium Sulfate (Magnesium Sulfate Ivpb) 4 gm in 50 mls @ 12.5 mls/hr IV X1 ONE Stop: 05/23/24 20:28 Discontinued Medications Pantoprazole Sodium (Protonix/Ns 80mg Iv Premix) 80 mg in 100 mls @ 400 mls/hr IV X1 ONE Stop: 05/23/24 12:54 Last Infusion: 05/23/24 13:39 Dose: Infused Ceftriaxone Sodium 1,000 mg/ (Sodium Chloride) 50 mls @ 100 mls/hr IV X1 ONE Stop: 05/23/24 14:14 Last Infusion: 05/23/24 14:51 Dose: Infused Sodium Chloride (Ns) 1,000 mls @ 999 mls/hr IV .Q1H1M ONE Stop: 05/23/24 14:14 Last Infusion: 05/23/24 14:51 Dose: Infused Assessment & Plan Plan Summary: This patient is a 83-year-old female with past medical history of hypertension, chronic A-fib on Eliquis, type 2 diabetes, COPD presented to the ED on 05/23/2024 from [facility] with chief complaint of altered mental status as well as upper and lower GI bleeding. Additionally, sepsis alert was initiated. Admitted for acute blood loss anemia and sepsis due to UTI. #Acute blood loss anemia with associated hematemesis and melena ? Patient was currently on Eliquis for chronic A-fib. Per chart review patient was complaining of abdominal pain and is somnolent. ?Patient presented with upper and lower GI bleed. EMS reported that patient had an episode of vomiting with blood and blood in the stool. Patient is AO x 1 person only at baseline. However today patient was not even alert and is more somnolent. ?In the ED, patient was mildly hypotensive, tachycardic, breathing comfortably and saturating well on room air. Patient was afebrile. ? Labs showed blood loss with hemoglobin 7.9 dropped to 6.8, stable white count. FOBT positive Plan: ? Started 2 units PRBC and IV fluids at 75 cc/h ? Started Protonix 40 mg IV twice daily and octreotide drip ? Post H&H follow-up ? Consulted GI, appreciate recommendations ? Holding Eliquis patient takes it for A-fib ? Follow-up with CBC and CMP ? Replete electrolytes as necessary #?UTI with significant pyuria ? Patient was tachycardic came with endorgan damage i.e kidney dysfunction and possible source UTI. .?UA was cloudy with blood and pyuria 911. Rare bacteria. FOBT positive. Plan: ? Started IV ceftriaxone 1g once a day daily ? Follow-up on blood cultures and urine cultures ? PureWick catheter placed #Acute on chronic encephalopathy due to advanced dementia ? Patient is usually AO x 1 to herself due to advanced dementia Plan: ? Head CT ordered to rule out bleeding ? N.p.o. for now ? Aspiration precautions ? Oxygen as needed ? Holding pain management #Lactic acidosis likely type A ?Related to blood loss ?Lactic acid was 11 downtrended to 9 Plan: ? IV fluids and PRBC transfusion ? If lactic acid up trended consider doing CT abdomen/pelvis without contrast ? Trend lactic acid #ELBA on CKD stage II?III with azotemia #Elevated anion gap ?Likely prerenal due to blood loss and sepsis ?Patient has anion gap of 22, azotemia with BUN 110 and creatinine 1.9 baseline 0.9 in 2020. Previous kidney functions in 2020 shows GFR 30?50. ?Bicarb 22.3 Plan: ? Avoid nephrotoxic agents ? Renally dose medications ? Strict LAKESHA's ? PureWick catheter placed ? Giving IV fluids and blood transfusion ? Follow-up with renal panel #NSTEMI type II likely supply demand ischemia ? Troponin I was elevated at- 0.054-> 0.091 ? EKG showed chronic A-fib with RBBB. QTc 500. Heart rate 103 Plan: ?Troponin I every 6 hourly ? Avoid QTc prolonging agents ?Patient did not come with chest pain or shortness of breath ? Telemonitoring #Hyperkalemia ? Related to ELBA on CKD ?Chemistry panel was showing hyperkalemia 5.2 Plan: ? Ordered breathing treatment x 1 ?Follow-up with electrolytes #Elevated corrected calcium ?Likely related to dehydration Plan ? Anticipate improvement with IV fluids and blood transfusion #Hypomagnesemia ? Magnesium 1.6. Plan: ? 4 g of magnesium given x 1 ?Replete electrolytes as necessary #History of hypertension #History of chronic A-fib on Eliquis #History of T2DM #History of COPD ?Patient has a history of chronic A-fib currently rate controlled. EKG showed RBBB pattern. QTc 500 ? Patient was taking Eliquis. ? No antihypertensive list on SNF chart ? Patient takes albuterol and ipratropium inhaler at [facility] ?[id number] 4 ? Has bled score:4 Plan: ? Holding antihypertensive ? Holding Eliquis ? Insulin sliding scale with hypoglycemia protocol ? Accu-Cheks ? Oxygen as needed ? Breathing treatments as needed ?Keep magnesium above 2 and potassium above 4 Health maintenance Diet: N.p.o. until nurse swallow screen and speech eval GI prophylaxis: Protonix 40 mg IV twice daily DVT prophylaxis: SCDs CODE STATUS: DNR/DNI per POLST form from SNF with selective treatment Disposition: Patient is admitted for workup of acute blood loss anemia and UTI. -- Patient was seen and discussed with attending physician, Dr. Adilia Cortez MD, PGY 2 Attending Provider Attestation/Addendum I have discussed and was present for the essential components of the history, physical examination, diagnosis, and treatment plan with the resident. I agree with the patient's care as documented by the resident and amended herein by me. Dillon Pat, DO. Patient seen and evaluated in the ED. The in addition to resident note above, the patient does have a POLST form which indicates limited treatment, DNR/DNI. I did speak with the daughter at bedside at length, and we will focus more on a comfort measures approach at this time, no invasive procedures are wanted as of now however the patient's family will see how she does overnight and reevaluate in the morning. We will transfuse for hemoglobin less than 7, continue pantoprazole 40 mg IV twice daily, octreotide and ceftriaxone at this time. Will continue to monitor closely, patient's condition is guarded at this time. Although this document has been carefully reviewed, there may still be some phonetic and other typographical errors. These errors are purely grammatical due to imperfections in the software program and should not be construed in any way to compromise the substance of the patient's medical care during this visit.
[2024-05-23] MEDS: ALBUTEROL/IPRATROPIUM (Duoneb) RT SOL 3 ML NEBU 5 ML INH (16:40)
[2024-05-23] MEDS: Magnesium Sulfate 4 GM Ivpb 4 GM/50 ML BAG IV (16:43)
[2024-05-23] MEDS: OCTREOTIDE ACET INJ 1,000 MCG in SODIUM CHLORIDE 0.9% 100 ML 5.1 MCG IV (17:32)
[2024-05-23] MEDS: RINGERS LACTATED 1000 ML 1,000 ML 75 ML IV (17:35)
[2024-05-23 18:31] LABS: Troponin I 0.091 ng/mL (0.0-0.045)
--- NOTE | 2024-05-23 19:10 | PD.IMCONS ---
HPI Data of Consult Requesting Physician: Jacky Pat DO Primary Care Provider: Physician No Primary/Family Consult Narrative Reason for consult: Hematemesis, melena,H/H 6.8/21.2 History of present illness: 83 years old female asked to evaluate by the internal medicine team and the emergency room physician for acute clinical presentation to the emergency room with a hemoglobin hematocrit 6.8 and 21.2 with hematemesis and melanotic stools Patient does have chronic atrial fibrillation on Eliquis along with history of hypertension diabetes mellitus type 2 and COPD Chest x-ray shows right basal pneumonia Patient has gross electrolyte abnormalities with a BUN of 110 creatinine 1.9 lactic acid of 11.0 and a slightly elevated troponin at 0.054 There is also a POLST order in the chart DNI DNR on a selective basis Family is deciding what to do next and they will have some clarity by tomorrow cc:: cc: Jacky Pat DO Review of Systems Review of Systems ROS Unobtainable: unobtainable due to medical condition Past Medical History Surgical History OTHER SURGICAL HX: As in the history of present illness Meds Home Medications and Allergies Home Medications ?Medication ?Instructions ?Recorded ?Confirmed ?Type Lactobacillus rhamnosus GG 10 1 cap PO QDAY #0 caps 05/02/16 01/04/21 History billion cell capsule (Culturelle) insulin glargine 100 unit/mL 18 unit subcut QAM #0 vials 05/02/16 01/04/21 History subcutaneous solution (Lantus U-100 Insulin) nitroglycerin 0.4 mg sublingual 0.4 mg SL PRN PRN Chest Pain #0 05/02/16 01/04/21 History tablet (Nitrostat) tabs digoxin 125 mcg (0.125 mg) tablet 125 mcg PO UD ##0 10/14/16 01/04/21 History hydrocodone 7.5 mg-acetaminophen 1 tab PO Q6H PRN Pain #0 tabs 10/14/16 01/04/21 History 300 mg tablet acetaminophen 325 mg tablet 650 mg PO Q6H PRN pain or fever 01/04/21 01/04/21 History (Tylenol) cranberry extract 425 mg capsule 425 mg PO QDAY 01/04/21 01/04/21 History docusate sodium 250 mg capsule 250 mg PO BID 01/04/21 01/04/21 History ferrous sulfate 325 mg (65 mg 325 mg PO BID 01/04/21 01/04/21 History iron) tablet insulin lispro 100 unit/mL 10 unit subcut USEASDIRECTD 01/04/21 01/04/21 History subcutaneous solution (Humalog U-100 Insulin) magnesium hydroxide 400 mg/5 mL 30 ml PO Q72H PRN Constipation 01/04/21 01/04/21 History oral suspension (Milk of Magnesia) metformin 1,000 mg tablet 1,000 mg PO BID 01/04/21 01/04/21 History sodium chloride 0.65 % nasal spray 2 spray intranasal BID 01/04/21 01/04/21 History aerosol (Saline Nasal Mist) sodium phosphates 19 gram-7 118 ml MT Q72H PRN Constipation 01/04/21 01/04/21 History gram/118 mL enema (Fleet Enema) trolamine salicylate 10 % topical 1 applic topical Q4H PRN knee pain 01/04/21 01/04/21 History cream (Aspercreme) verapamil 240 mg tablet,extended 240 mg PO QDAY 01/04/21 01/04/21 History release Allergies Allergy/AdvReac Type Severity Reaction Status Date / Time warfarin AdvReac Mild PT Verified 01/04/21 10:21 EXPERIENCE BLEEDING WITH COUMADIN Exam Vital Signs Temp Pulse Resp BP Pulse Ox O2 Del Method 98 F 107 H 18 115/55 L 97 Room Air 05/23/24 18:40 05/23/24 18:40 05/23/24 18:40 05/23/24 18:40 05/23/24 18:40 05/23/24 18:00 Routine Respiratory Exam Comments: Normal to auscultation Routine Abdominal Exam Comments: Soft nontender Results Labs 05/23/24 15:43 05/23/24 12:50 Labs: Short CBC 05/23/24 05/23/24 Range/Units 12:50 15:43 WBC 10.3 (3.6-11.0) Thou/mm3 Hgb 7.9 L 6.8 L* (12.0-16.0) g/dL Hct 25.1 L 21.1 L* (36.0-46.0) % Plt Count 187 (140-440) Thou/mm3 BMP 05/23/24 12:50 Sodium 143 Potassium 5.2 H Chloride 98 Carbon Dioxide 23.3 BUN 110 H* Creatinine 1.9 H Glucose 134 H Calcium 10.7 H Cardiac Enzymes 05/23/24 05/23/24 Range/Units 12:50 17:12 Troponin I 0.054 H* 0.091 H* (0.0-0.045) ng/mL Liver Function 05/23/24 Range/Units 12:50 Total Bilirubin 0.3 (0.3-1.2) mg/dL AST 20 (0-34) U/L ALT 12 (10-49) U/L Alkaline Phosphatase 52 (46-116) U/L Albumin 3.8 (3.4-4.8) gm/dL Urine 05/23/24 Range/Units 14:06 Urine Color Lt-Yellow (Lt Yel-Yel) Urine Clarity Cloudy A (Clear/Hazy) Urine pH 5.0 (5.0-7.0) Ur Specific [place] 1.011 (1.001-1.035) Urine Protein Negative (Neg - Trace) Urine Glucose (UA) Negative (Negative) Assessment and Plan Additional Assessment & Plan Additional Plan: # Acute GI bleed with hematemesis and melena in the setting of Eliquis for atrial fibrillation Agree with blood transfusion Resuscitate the patient Let the family decide how aggressive they want to be then I will make a decision when to do an upper endoscopy or not do that at all if she is going to be a comfort care Other medical problems include # Chronic atrial fibrillation on Eliquis which is being held # Essential hypertension # Diabetes mellitus type 2 # COPD # Elevated troponin # Lactic acidosis # ELBA with dehydration Thank you for the opportunity to participate in the care of this patient
--- NOTE | 2024-05-23 19:34 | PC.NURSE ---
Dr. Knight in to see pt.
--- NOTE | 2024-05-23 19:48 | XR_ITS ---
Examination: CT brain head without contrast. 2-D sagittal coronal reconstructions Date and time of exam:May 23, 2024 2041 hours INDICATIONS: Altered mental status today CTDI: vol (mGy):45.6 DLP: (mGycm):920 Technique: Multiple CT axial sections of the brain have been obtained, 5 mm slice thickness. Contrast has not been administered. 2-D sagittal, coronal reconstructions have been obtained Low dose protocols were performed. One or more of the following dose reduction techniques were used; automated exposure control, adjustment of the mA and/or KV according to patient size, use of iterative reconstruction technique. Findings: No significant ventricular enlargement. Intra-axial or extra-axial hemorrhage density is not seen. No mass effect or midline shift Basal cisterns are not remarkable. Fourth ventricle is midline. Cranial vault intact. Posterior scalp likely sebaceous cyst Impression: Negative for acute hemorrhage, mass effect or midline shift Advise clinical correlation and follow-up required 90
--- NOTE | 2024-05-23 19:54 | PC.NURSE ---
brief changed. florin care done. pure wick in place.
[2024-05-24] VITALS (16 sets, daily range): BP systolic 113–159; BP diastolic 56–91; PULSE 60–96; RESP 16–100; TEMP 36.2–36.9; O2SAT 92–100; BMI 24.6; BMI 24.7
--- NOTE | 2024-05-24 06:05 | PC.NURSE ---
Patient refused morning labs aware lab will attempt to draw later
[2024-05-24 08:12] LABS: Lactate (Lactic Acid) 3.5 mMol/L (0.4-2.0)
[2024-05-24 08:21] LABS: Basophils % (Auto) 0 % (0-2.5); Eosinophils % (Auto) 0 % (0-10); Hematocrit 27.3 % (36.0-46.0); Hemoglobin 9.1 g/dL (12.0-16.0); Immature Granulocytes % (Auto) 0 % (0-0); Immature Granulocytes Auto 0.03 Thou/mm3 (0.00-0.00); Lymphocytes # (Auto) 1.3 Thou/mm3 (1.0-4.8); Lymphocytes % (Auto) 17 % (10-50); Mean Corpuscular HGB Conc 33.3 g/dl (31.0-37.0); Mean Corpuscular Hemoglobin 31.1 pg (25.0-35.0); Mean Corpuscular Volume 93 fL (80-100); Monocytes # (Auto) 0.9 Thou/mm3 (0.0-0.8); Monocytes % (Auto) 11 % (0-12); Neutrophils # (Auto) 5.6 Thou/mm3 (1.8-7.7); Neutrophils % (Auto) 71 % (37-80); Nucleated Red Blood Cell % 0 /100 WBC (0); Platelet Count 160 Thou/mm3 (140-440); RDW Standard Deviation 70.3 fL (36.4-46.3); Red Blood Count 2.93 Miln/mm3 (4.00-5.20); White Blood Count 7.9 Thou/mm3 (3.6-11.0)
[2024-05-24 08:35] LABS: Albumin, Serum 3.4 gm/dL (3.4-4.8); Anion Gap 11 (7-16); Calcium 10.4 mg/dL (8.3-10.6); Calcium (Corrected) 10.9 mg/dL (8.5-10.1); Carbon Dioxide 29.6 mMol/L (20.0-31.0); Chloride 105 mMol/L (98-107); Glucose 99 mg/dL (74-106); Magnesium 2.7 mg/dL (1.6-2.6); Phosphorous 4.4 mg/dL (2.4-5.1); Potassium 4.6 mMol/L (3.4-5.1); Sodium 146 mMol/L (136-145); eGFR 24 See Note
[2024-05-24 08:41] LABS: BUN/Creatinine Ratio 52 Ratio (12-20); Blood Urea Nitrogen 103 mg/dL (9-23); Osmolality,Calculated 322 (275-295)
[2024-05-24] MEDS: PANTOPRAZOLE INJ 40 MG VIAL IVP ×2 (08:41→20:10)
[2024-05-24 08:42] LABS: Troponin I 0.117 ng/mL (0.0-0.045)
[2024-05-24] MEDS: cefTRIAXone/D5w 1gm IV premix 1 GM/50 ML BAG IV (08:42)
[2024-05-24 11:10] LABS: Reflex Lactate? Y
[2024-05-24 11:42] LABS: Lactic Acid, 3 HR 2.8 mMol/L (0.4-2.0)
[2024-05-24] MEDS: OCTREOTIDE ACET INJ 1,000 MCG in SODIUM CHLORIDE 0.9% 100 ML 5.1 MCG IV (12:05)
[2024-05-24] MEDS: METOCLOPRAMIDE INJ 5 MG/ML VIAL 2 ML IVP ×2 (12:05→18:35)
--- NOTE | 2024-05-24 12:43 | ESPR_ITS ---
Documentation for date of: 05/24/24 Subjective Subjective Interval history: Seen and examined at bedside in telemetry. Spoke to family at bedside regarding wishes on how to proceed with management and they decided to undergo further GI workup. Dr. Knight was informed and stated that he will try to do an EGD today in the afternoon. Patient was subsequently made n.p.o. and family was informed. Patient endorsed nausea and Zofran held given QTc of 500 and metoclopramide started. Otherwise, she is much more alert and oriented to self, birthdate, and town. Exam Vital Signs Temp Pulse Resp BP Pulse Ox O2 Del Method O2 Flow Rate 98.4 F 88 18 113/62 92 L Room Air 0 05/24/24 08:00 05/24/24 10:10 05/24/24 10:10 05/24/24 08:00 05/24/24 08:00 05/24/24 08:00 05/24/24 01:35 Narrative Exam General: Alert and oriented to self/birthdate/town, no acute distress, able to speak in 3-4 word sentences HEENT: Oral cavity with dried blood noted, NC/AT, bilateral sclera anicteric Cardiovascular: regular rate and rhythm, S1/S2 present, no murmurs appreciated Pulmonary: clear to auscultation bilaterally, no rales/rhonchi/wheezes Abdominal: Epigastric tenderness, soft, non-distended, normal bowel sounds present Musculoskeletal: normal ROM, no peripheral edema Skin: Chronic venous stasis Neuro: CN II-XII intact, no focal deficits Objective Labs 05/24/24 07:55 05/24/24 07:55 Labs: Laboratory Results - last 24 hr 05/23/24 05/23/24 05/23/24 12:50 14:06 15:43 WBC 10.3 RBC 2.39 L Hgb 7.9 L 6.8 L* Hct 25.1 L 21.1 L* MCV 105 H MCH 33.1 MCHC 31.5 RDW Std Deviation 55.6 H Plt Count 187 Neut % (Auto) 77 Lymph % (Auto) 13 [place] % (Auto) 9 Eos % (Auto) 0 Baso % (Auto) 0 Neut # (Auto) 8.0 H Lymph # (Auto) 1.3 [place] # (Auto) 1.0 H Eos # (Auto) 0.0 Baso # (Auto) 0.0 Immature Gran # (Auto) 0.08 H Absolute Nucleated RBC 0.00 Immature Gran % 1 H Nucleated RBC % 0 PT 11.7 INR 1.1 APTT 26.1 Sodium 143 Potassium 5.2 H Chloride 98 Carbon Dioxide 23.3 Anion Gap 22 H BUN 110 H* Creatinine 1.9 H Estim Creat Clear Calc 20.9 L eGFR 26 L BUN/Creatinine Ratio 58 H Glucose 134 H Calculated Osmolality 321 H Lactic Acid 11.0 H* Calcium 10.7 H Corrected Calcium 10.9 H Phosphorus Magnesium 1.6 Total Bilirubin 0.3 AST 20 ALT 12 Alkaline Phosphatase 52 Troponin I 0.054 H* Total Protein 6.1 Albumin 3.8 Globulin 2.3 Albumin/Globulin Ratio 1.7 Ur Collection Type Catheter Urine Color Lt-Yellow Urine Clarity Cloudy A Urine pH 5.0 Ur Specific [place] 1.011 Urine Protein Negative Urine Glucose (UA) Negative Urine Ketones Trace Urine Blood 1+ A Urine Nitrite Negative Urine Bilirubin Negative Urine Urobilinogen (Auto) Negative Ur Leukocyte Esterase Positive Urine RBC 3 Urine WBC 911 H Ur Squamous Epith Cells 1 Urine Bacteria Rare Blood Type A Positive Antibody Screen NEGATIVE Crossmatch See Detail Blood Bank Wristband ID Yes 05/23/24 05/24/24 05/24/24 17:12 07:55 11:31 WBC 7.9 RBC 2.93 L Hgb 9.1 L D Hct 27.3 L MCV 93 MCH 31.1 MCHC 33.3 RDW Std Deviation 70.3 H Plt Count 160 Neut % (Auto) 71 Lymph % (Auto) 17 [place] % (Auto) 11 Eos % (Auto) 0 Baso % (Auto) 0 Neut # (Auto) 5.6 Lymph # (Auto) 1.3 [place] # (Auto) 0.9 H Eos # (Auto) 0.0 Baso # (Auto) 0.0 Immature Gran # (Auto) 0.03 H Absolute Nucleated RBC 0.00 Immature Gran % 0 Nucleated RBC % 0 PT INR APTT Sodium 146 H Potassium 4.6 D Chloride 105 Carbon Dioxide 29.6 Anion Gap 11 BUN 103 H* Creatinine 2.0 H Estim Creat Clear Calc 18.0 L eGFR 24 L BUN/Creatinine Ratio 52 H Glucose 99 Calculated Osmolality 322 H Lactic Acid 9.0 H* 3.5 H 2.8 H Calcium 10.4 Corrected Calcium 10.9 H Phosphorus 4.4 Magnesium 2.7 H Total Bilirubin AST ALT Alkaline Phosphatase Troponin I 0.091 H* 0.117 H* 0.110 H* Total Protein Albumin 3.4 Globulin Albumin/Globulin Ratio Ur Collection Type Urine Color Urine Clarity Urine pH Ur Specific [place] Urine Protein Urine Glucose (UA) Urine Ketones Urine Blood Urine Nitrite Urine Bilirubin Urine Urobilinogen (Auto) Ur Leukocyte Esterase Urine RBC Urine WBC Ur Squamous Epith Cells Urine Bacteria Blood Type Antibody Screen Crossmatch Blood Bank Wristband ID Quality Measures Quality Measures VTE prophylaxis (SCDs) Advance care planning discussed with:: patient and child Assessment & Plan Assessment Current Active Medications: Generic Name Dose Route Start Last Admin Trade Name Freq PRN Reason Stop Dose Admin Acetaminophen 650 mg 05/23/24 16:19 Acetaminophen Supp 650 Mg Supp MI 06/22/24 16:18 Q6HR PRN Fever > 100.4 Albuterol/Ipratropium 3 ml 05/23/24 18:57 Albuterol/Ipratropium (Duoneb) Rt Marina 3 Ml Nebu INH 06/22/24 18:59 Q4HRRT PRN wheezing Dextrose 25 ml 05/23/24 18:07 Dextrose 50%-Water Inj 50 Ml Syringe IV 06/22/24 18:06 Q15MIN PRN BG 50-70 responsive npo pt Dextrose 50 ml 05/23/24 18:07 Dextrose 50%-Water Inj 50 Ml Syringe IV 06/22/24 18:06 Q15MIN PRN BG <50 OR BG <70 & pt unresponsive Glucagon 1 mg 05/23/24 18:07 Glucagon Inj 1 Mg Vial IM Q15MIN PRN BG <70, and no IV access Octreotide Acetate 1,000 mcg/ 102 mls @ 5.1 mls/hr 05/23/24 16:45 05/23/24 17:32 Sodium Chloride IV 05/24/24 12:44 50 mcg/hr .Q20H ONE 5.1 mls/hr Administration Protocol 50 MCG/HR Ceftriaxone Sodium/Dextrose 1 gm in 50 mls @ 100 mls/hr 05/24/24 09:00 05/24/24 08:42 Rocephin/D5w 1gm Iv Premix IV 05/31/24 08:59 100 mls/hr QDAY ROCK Administration Octreotide Acetate 1,000 mcg/ 102 mls @ 5.1 mls/hr 05/24/24 11:30 05/24/24 12:05 Sodium Chloride IV 06/23/24 11:29 50 mcg/hr .Q20H ROCK 5.1 mls/hr Administration Protocol 50 MCG/HR Metoclopramide HCl 5 mg 05/24/24 12:00 05/24/24 12:05 Metoclopramide Inj 5 Mg/Ml Vial 2 Ml IVP 06/23/24 11:59 5 mg Q6HR ROCK Administration Protocol Ondansetron HCl 4 mg 05/23/24 16:19 Ondansetron Inj 2 Mg/Ml Inj 2 Ml IV 06/22/24 16:18 Q6H PRN NAUSEA OR VOMITING Protocol Pantoprazole Sodium 40 mg 05/23/24 21:00 05/24/24 08:41 Pantoprazole Inj 40 Mg Vial IVP 06/22/24 20:59 40 mg Q12HR ROCK Administration Plan Glenis Bustamante 83-y/o female PMHx HTN, A-fib on Eliquis, T2DM, COPD admitted on 05/23 from SNF for GI bleed (melena, hematemesis) and sepsis 2/2 UTI. #Upper versus lower GI bleed #Acute blood loss anemia Melena and hematemesis, FOBT positive. Endorse abdominal pain but somnolent on exam. Hemoglobin dropped from 7.9 to 6.8. On Eliquis for A-fib, currently held. Transfused 2 units PRBC, hemoglobin stable at 9.1. ? Octreotide drip and Protonix 40 mg IV twice daily ? GI consulted, appreciate recommendations ? N.p.o. and pending EGD ? Hold Eliquis #Sepsis secondary to UTI #Urinary tract infection UA showed cloudy urine with 911 WBC, urine bacteria with endorgan damage (ELBA). ? Ceftriaxone IV 1 g daily ? Blood cultures 05/23: Pending ? Urine culture uncollected #Acute on chronic encephalopathy in setting of advanced dementia CT head: negative for bleed, masses, midline shift Passed speech swallow evaluation. ? N.p.o. for EGD #Lactic acidosis, type A in setting of blood loss, improving #Elevated anion gap Lactic acid 11, down trended to 9. 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 Received breathing treatment x 1 and repleted 4 g magnesium. ? Avoid nephrotoxic agents, renally dose medications ? Strict I's and O's, PureWick catheter placed ? Follow-up a.m. labs and replete as necessary #NSTEMI type II, demand ischemia Troponin 0.054 -> 0.091 -> 0.117 -> 0.110. EKG showed chronic A-fib with RBBB, QTc 500, HR 103. ? Avoid QTc prolonging agents #History of hypertension No antihypertensives on med rec from SNF #History of A-fib ? Hold Eliquis in setting of GI bleed ? Mg > 2, K > 4 #History of COPD ? As needed breathing treatments, PRN oxygen #History of T2DM ? SSI, hypoglycemia protocol Hospital management: Disposition: Pending EGD, blood culture, urine cultures, on IV antibiotics Fluids: none Diet: NPO for EGD Lines: PIV DVT prophylaxis: SCDs GI prophylaxis: pantoprazole 40 mg IV BID CODE STATUS: DNR ----- Plan discussed with attending physician Nicko Randall MD PGY-1 Internal Medicine Attending Provider Attestation/Addendum I have discussed and was present for the essential components of the history, physical examination, diagnosis, and treatment plan with the resident. I agree with the patient's care as documented by the resident and amended herein by me. Dillon Pat, DO. Patient seen and evaluated this AM. Vital signs stable, patient afebrile overnight, hemoglobin was 6.8 this morning and the patient was transfused. Sodium 143, potassium 5.2, creatinine did uptrend to 1.9, troponin also has down trended to 0.110. The patient's lactic acid has down trended, 3.5 this morning. Will continue to follow blood cultures, transfuse for hemoglobin less than 7, will give fluids today, continue pantoprazole, octreotide, and ceftriaxone. The patient's Eliquis has been held. We did talk to the patient's son and daughter at bedside today, they indeed would like to proceed with upper endoscopy, gastroenterology notified who will perform the procedure today. Will replete electrolytes as necessary and continue to monitor closely. Although this document has been carefully reviewed, there may still be some phonetic and other typographical errors. These errors are purely grammatical due to imperfections in the software program and should not be construed in any way to compromise the substance of the patient's medical care during this visit.
[2024-05-24 19:00] LABS: Troponin I 0.094 ng/mL (0.0-0.045)
[2024-05-25] VITALS (8 sets, daily range): BP systolic 114–137; BP diastolic 53–82; PULSE 44–80; RESP 16–99; TEMP 36.1–36.9; O2SAT 92–100; BMI 25.0
[2024-05-25] MEDS: METOCLOPRAMIDE INJ 5 MG/ML VIAL 2 ML IVP ×5 (00:16→23:08)
[2024-05-25 06:27] LABS: Basophils % (Auto) 0 % (0-2.5); Eosinophils # (Auto) 0.1 Thou/mm3 (0.0-0.5); Eosinophils % (Auto) 1 % (0-10); Hematocrit 25.9 % (36.0-46.0); Immature Granulocytes % (Auto) 1 % (0-0); Immature Granulocytes Auto 0.04 Thou/mm3 (0.00-0.00); Lymphocytes # (Auto) 1.2 Thou/mm3 (1.0-4.8); Lymphocytes % (Auto) 18 % (10-50); Mean Corpuscular HGB Conc 32.8 g/dl (31.0-37.0); Mean Corpuscular Hemoglobin 30.9 pg (25.0-35.0); Mean Corpuscular Volume 94 fL (80-100); Monocytes # (Auto) 0.6 Thou/mm3 (0.0-0.8); Monocytes % (Auto) 9 % (0-12); Neutrophils # (Auto) 4.8 Thou/mm3 (1.8-7.7); Neutrophils % (Auto) 71 % (37-80); Nucleated Red Blood Cell % 0 /100 WBC (0); Platelet Count 151 Thou/mm3 (140-440); RDW Standard Deviation 67.2 fL (36.4-46.3); Red Blood Count 2.75 Miln/mm3 (4.00-5.20); White Blood Count 6.7 Thou/mm3 (3.6-11.0)
[2024-05-25 06:28] LABS: Hemoglobin 8.5 g/dL (12.0-16.0)
[2024-05-25 07:00] LABS: Albumin, Serum 3.5 gm/dL (3.4-4.8); Anion Gap 11 (7-16); BUN/Creatinine Ratio 46 Ratio (12-20); Blood Urea Nitrogen 92 mg/dL (9-23); Calcium 10.4 mg/dL (8.3-10.6); Calcium (Corrected) 10.8 mg/dL (8.5-10.1); Carbon Dioxide 30.4 mMol/L (20.0-31.0); Chloride 107 mMol/L (98-107); Estimated Creatinine Clearance 17.6 mL/min (>60); Glucose 158 mg/dL (74-106); Magnesium 2.5 mg/dL (1.6-2.6); Osmolality,Calculated 325 (275-295); Phosphorous 4.1 mg/dL (2.4-5.1); Potassium 4.1 mMol/L (3.4-5.1); Sodium 148 mMol/L (136-145); eGFR 24 See Note
[2024-05-25] MEDS: cefTRIAXone/D5w 1gm IV premix 1 GM/50 ML BAG IV (09:20)
[2024-05-25] MEDS: PANTOPRAZOLE INJ 40 MG VIAL IVP ×2 (09:20→21:17)
--- NOTE | 2024-05-25 11:09 | PC.RT ---
SS informed by Wasiq patient to discharge back to SNF today. CAMI contacted eJssi from [facility] to confirm if patient can be recieved today. Pending Jessi-GRACIA response.
--- NOTE | 2024-05-25 12:42 | EKG_ITS ---
[facility] Test Date: 2024-05-25 Pat Name: DIPTI BECERRIL [facility] Gender: Female [place] [employer] Operator: NACHO : 1940 Requested By: Daniele Cortez Order Number: [id number] Reading MD: Daniele Cortez Measurements Intervals [place]ons Rate: 54 P: UT: QRS: 105 QRSD: 162 T: -39 QT: 415 QTc: 394 Interpretive Statements ATRIAL FIBRILLATION WITH SLOW VENTRICULAR RESPONSE MARKED RIGHT AXIS DEVIATION RIGHT BUNDLE BRANCH BLOCK Compared to ECG 05/23/2024 11:58:43 Right-axis deviation now present Indeterminate axis no longer present T-wave abnormality no longer present Possible ischemia no longer present /store/S0/[id number].pdf
[2024-05-25 13:23] LABS: Ferritin 30 ng/mL (7.3-270.7); Iron 26 mcg/dL (50-170); Percent Iron Saturation 10 % (20-55); Total Iron Binding Capacity 255 mcg/dL (250-425); Unsaturated Iron Binding 229 (225-295)
--- NOTE | 2024-05-25 13:30 | PC.NURSE ---
MD Wasiq made aware that patients's heart rate drops down to 40BPM. Pt asymptomatic. EKG ordered
--- NOTE | 2024-05-25 13:50 | PC.SS ---
Coke Drawer Hand (PATRICE) Ann informed by Ricardo that patient was going to discharge to [facility]. PATRICE contacted -SNF and spoke to Vernon CHOWDHURY to clarify if patient can return back; Vernon in agreement with patient to return. PATRICE met with patient's daughter, Ronda ([phone]) and granddaughter, Marian ([phone]) who reported that no information was provided. Ronda requested to speak to . PATRICE contacted Team A Senior Resident, Dr. Cortez who reported that patient's discharge was cancelled due to consulting GI-Dr. Knight. PATRICE notified Ronda.
--- NOTE | 2024-05-25 14:02 | ESPR_ITS ---
<Statement entered by Daniele Cortez MD - 05/25/24 16:37> Patient was seen and examined at the bedside. No acute overnight events were reported. Patient is AO x 2. Dr. Knight, GI specialist recommended to continue peptic ulcer bland diet as EGD showed some ulcers pattern. Will continue with Protonix 40 mg IV twice daily. Recommended to continue Eliquis upon discharge. Ordered iron panel and started IV iron therapy as they were low. EKG showed sinus bradycardia. Will continue to monitor for now. Electrolytes were unremarkable. Hemoglobin stable at 8.5. BUN slightly better than admission around 92 and creatinine 2.0 which is her baseline. Will continue Rocephin for UTI 1 more day as urine cultures were not collected on admission. Follow-up with GI recommendations. All labs and orders were reviewed. I saw and examined the patient, and I agree with current management stated by Dr Prakash MD,PGY1. Plan of care was discussed with the attending physician and resident physician. Disclaimer: Despite multiple revisions, due to the dictation software being used, the document bellow may not be free of grammatical errors including phonetic/typographic errors. However, this does not deter from our commitment to providing health care in the patient's best interest in mind. Dr. Daan MD, PGY 2 Documentation for date of: 05/25/24 Subjective Subjective Interval history: No acute overnight events reported. Seen and examined at bedside with family present, updated on current plans and discussed possible future plans given findings. Family to discuss with GI whether pursuing colonoscopy is in the best interest of the patient and we will reconvene tomorrow. Otherwise, patient remains alert and oriented x 3. Exam Vital Signs Temp Pulse Resp BP Pulse Ox O2 Del Method O2 Flow Rate 98.4 F 66 16 130/65 100 Oxy Mask 1 05/25/24 08:00 05/25/24 08:00 05/25/24 08:00 05/25/24 08:00 05/25/24 04:00 05/25/24 08:00 05/25/24 08:00 Narrative Exam General: Alert and oriented to self/birthdate/town, no acute distress, able to speak in 3-4 word sentences HEENT: Oral cavity with dried blood noted, NC/AT, bilateral sclera anicteric Cardiovascular: regular rate and rhythm, S1/S2 present, no murmurs appreciated Pulmonary: clear to auscultation bilaterally, no rales/rhonchi/wheezes Abdominal: Epigastric tenderness, soft, non-distended, normal bowel sounds present Musculoskeletal: normal ROM, no peripheral edema Skin: Chronic venous stasis Neuro: CN II-XII intact, no focal deficits Objective Labs 05/25/24 05:48 05/25/24 05:48 Labs: Laboratory Results - last 24 hr 05/24/24 05/25/24 18:09 05:48 WBC 6.7 RBC 2.75 L Hgb 8.5 L Hct 25.9 L MCV 94 MCH 30.9 MCHC 32.8 RDW Std Deviation 67.2 H Plt Count 151 Neut % (Auto) 71 Lymph % (Auto) 18 [place] % (Auto) 9 Eos % (Auto) 1 Baso % (Auto) 0 Neut # (Auto) 4.8 Lymph # (Auto) 1.2 [place] # (Auto) 0.6 Eos # (Auto) 0.1 Baso # (Auto) 0.0 Immature Gran # (Auto) 0.04 H Absolute Nucleated RBC 0.00 Immature Gran % 1 H Nucleated RBC % 0 Sodium 148 H Potassium 4.1 D Chloride 107 Carbon Dioxide 30.4 Anion Gap 11 BUN 92 H Creatinine 2.0 H Estim Creat Clear Calc 17.6 L eGFR 24 L BUN/Creatinine Ratio 46 H Glucose 158 H D Calculated Osmolality 325 H Calcium 10.4 Corrected Calcium 10.8 H Phosphorus 4.1 Magnesium 2.5 Iron 26 L TIBC 255 Iron Saturation 10 L Unsat Iron Binding 229 Ferritin 30 Troponin I 0.094 H* Albumin 3.5 Quality Measures Quality Measures VTE prophylaxis (SCDs) Advance care planning discussed with:: other Assessment & Plan Assessment Current Active Medications: Generic Name Dose Route Start Last Admin Trade Name Freq PRN Reason Stop Dose Admin Acetaminophen 650 mg 05/23/24 16:19 Acetaminophen Supp 650 Mg Supp MI 06/22/24 16:18 Q6HR PRN Fever > 100.4 Albuterol/Ipratropium 3 ml 05/23/24 18:57 Albuterol/Ipratropium (Duoneb) Rt Marina 3 Ml Nebu INH 06/22/24 18:59 Q4HRRT PRN wheezing Dextrose 25 ml 05/23/24 18:07 Dextrose 50%-Water Inj 50 Ml Syringe IV 06/22/24 18:06 Q15MIN PRN BG 50-70 responsive npo pt Dextrose 50 ml 05/23/24 18:07 Dextrose 50%-Water Inj 50 Ml Syringe IV 06/22/24 18:06 Q15MIN PRN BG <50 OR BG <70 & pt unresponsive Glucagon 1 mg 05/23/24 18:07 Glucagon Inj 1 Mg Vial IM Q15MIN PRN BG <70, and no IV access Metoclopramide HCl 5 mg 05/24/24 12:00 05/25/24 13:58 Metoclopramide Inj 5 Mg/Ml Vial 2 Ml IVP 06/23/24 11:59 5 mg Q6HR ROCK Administration Protocol Ondansetron HCl 4 mg 05/23/24 16:19 Ondansetron Inj 2 Mg/Ml Inj 2 Ml IV 06/22/24 16:18 Q6H PRN NAUSEA OR VOMITING Protocol Pantoprazole Sodium 40 mg 05/24/24 21:00 05/25/24 09:20 Pantoprazole Inj 40 Mg Vial IVP 06/23/24 20:59 40 mg BID ROCK Administration Plan Glenis Bustamante 83-y/o female PMHx HTN, A-fib on Eliquis, T2DM, COPD admitted on 05/23 from SNF for GI bleed (melena, hematemesis) and sepsis 2/2 UTI. #Upper versus lower GI bleed #Acute blood loss anemia Melena and hematemesis, FOBT positive. Endorse abdominal pain but somnolent on exam. Hemoglobin dropped from 7.9 to 6.8. On Eliquis for A-fib, currently held. Transfused 2 units PRBC, hemoglobin stable at 9.1. EGD on 05/24: 12 mm ulcer that was not bleeding ? Protonix 40 mg IV twice daily ? GI consulted, appreciate recommendations ? Monitor CBC and transfuse as needed #Sepsis secondary to UTI #Urinary tract infection UA showed cloudy urine with 911 WBC, urine bacteria with endorgan damage (ELBA). Ceftriaxone (05/23-05/25) ? Blood cultures 05/23: Pending ? Urine culture uncollected #Acute on chronic encephalopathy in setting of advanced dementia, resolved CT head: negative for bleed, masses, midline shift Passed speech swallow evaluation. #Lactic acidosis, type A in setting of blood loss, improving #Elevated anion gap Lactic acid 11, down trended to 9. 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 ? Avoid nephrotoxic agents, renally dose medications ? Strict I's and O's, PureWick catheter placed ? Follow-up a.m. labs and replete as necessary #NSTEMI type II, demand ischemia Troponin 0.054 -> 0.091 -> 0.117 -> 0.110. EKG showed chronic A-fib with RBBB, QTc 500, HR 103. ? Avoid QTc prolonging agents #History of hypertension No antihypertensives on med rec from SNF #History of A-fib ? Resumed Eliquis 2.5 mg p.o. twice daily ? Mg > 2, K > 4 #History of COPD ? As needed breathing treatments, PRN oxygen #History of T2DM ? SSI, hypoglycemia protocol Hospital management: Disposition: Pending decision whether to pursue colonoscopy Fluids: none Diet: Peptic ulcer diet Lines: PIV DVT prophylaxis: SCDs GI prophylaxis: pantoprazole 40 mg IV BID CODE STATUS: DNR ----- Plan discussed with attending physician Nicko Randall MD PGY-1 Internal Medicine Attending Provider Attestation/Addendum I have discussed and was present for the essential components of the history, physical examination, diagnosis, and treatment plan with the resident. I agree with the patient's care as documented by the resident and amended herein by me. Dillon Pat, . Patient seen and evaluated this AM. No acute events overnight, vital signs stable, patient afebrile. Patient much more awake and alert today, hemoglobin has been stable, 8.5 today. Patient is demonstrating intention tremors with her hands, likely secondary to uremia, BUN 92 today however is downtrending. Creatinine has been stable at 2. EGD demonstrated a small nonbleeding 12 mm gastric ulcer. If the patient can tolerate GoLytely, a colonoscopy can be performed per gastroenterology. Will continue fluids as needed on the patient, she was eating breakfast this morning which the patient will need to be made n.p.o. and start GoLytely if deemed necessary by gastroenterology, will continue to transfuse for hemoglobin less than 7, antibiotics will be stopped today for UTI as the patient will have completed a 3-day course. Will continue Protonix and continue holding Eliquis for now. Although this document has been carefully reviewed, there may still be some phonetic and other typographical errors. These errors are purely grammatical due to imperfections in the software program and should not be construed in any way to compromise the substance of the patient's medical care during this visit.
[2024-05-25] MEDS: FERRIC SOD GLUC INJ 125 MG in SODIUM CHLORIDE 0.9% 100 ML 110 MG IV (16:01)
--- NOTE | 2024-05-25 18:04 | ESPR_ITS ---
Documentation for date of: 05/25/24 Subjective Subjective Interval history: Upper endoscopy showed gastric ulcer 12 mm in size I am not sure why the report is not there Exam Vital Signs Temp Pulse Resp BP Pulse Ox O2 Del Method O2 Flow Rate 96.9 F 73 18 126/53 L 98 Room Air 1 05/25/24 16:00 05/25/24 16:00 05/25/24 16:00 05/25/24 16:00 05/25/24 16:00 05/25/24 16:00 05/25/24 12:00 Objective Labs 05/25/24 05:48 05/25/24 05:48 Labs: Laboratory Results - last 24 hr 05/24/24 05/25/24 18:09 05:48 WBC 6.7 RBC 2.75 L Hgb 8.5 L Hct 25.9 L MCV 94 MCH 30.9 MCHC 32.8 RDW Std Deviation 67.2 H Plt Count 151 Neut % (Auto) 71 Lymph % (Auto) 18 [place] % (Auto) 9 Eos % (Auto) 1 Baso % (Auto) 0 Neut # (Auto) 4.8 Lymph # (Auto) 1.2 [place] # (Auto) 0.6 Eos # (Auto) 0.1 Baso # (Auto) 0.0 Immature Gran # (Auto) 0.04 H Absolute Nucleated RBC 0.00 Immature Gran % 1 H Nucleated RBC % 0 Sodium 148 H Potassium 4.1 D Chloride 107 Carbon Dioxide 30.4 Anion Gap 11 BUN 92 H Creatinine 2.0 H Estim Creat Clear Calc 17.6 L eGFR 24 L BUN/Creatinine Ratio 46 H Glucose 158 H D Calculated Osmolality 325 H Calcium 10.4 Corrected Calcium 10.8 H Phosphorus 4.1 Magnesium 2.5 Iron 26 L TIBC 255 Iron Saturation 10 L Unsat Iron Binding 229 Ferritin 30 Troponin I 0.094 H* Albumin 3.5 Impressions Impression: Gastric ulcer Gastritis Continue current management Patient does need a colonoscopy but she is not a candidate for it I spoke with the family we will continue to monitor CBC Assessment & Plan A&P Narrative # Acute GI bleed with hematemesis and melena in the setting of Eliquis for atrial fibrillation Agree with blood transfusion Resuscitate the patient Let the family decide how aggressive they want to be then I will make a decision when to do an upper endoscopy or not do that at all if she is going to be a comfort care Other medical problems include # Chronic atrial fibrillation on Eliquis which is being held # Essential hypertension # Diabetes mellitus type 2 # COPD # Elevated troponin # Lactic acidosis # ELBA with dehydration Thank you for the opportunity to participate in the care of this patient Time Spent With Patient Time: Total time spent is greater than 50% in coordination of care (as documented) at patient's floor/unit and/or counseling patient:
--- NOTE | 2024-05-25 18:19 | PC.NURSE ---
MD Correia made aware of new DTI injury to Right foot and L great toe, she stated that she would be at bedside to take a look at the patient. Wound consult to be placed.
--- NOTE | 2024-05-25 18:34 | XR_ITS ---
Examination: Right foot 2 views TECHNIQUE: AP lateral right foot 2 views Examination time: May 25, 2024 1811 hours INDICATIONS: Right foot redness swelling and pain FINDINGS: Severe osteopenia, nonstandard views Large plantar bony calcaneal spur. Soft tissue vascular calcification. Soft tissue swelling dorsum of the foot No leonard cortical bone destruction IMPRESSION: Severe osteopenia Limited study No gross cortical bone destruction Consider MRI foot without contrast follow-up
[2024-05-25] MEDS: ACETAMINOPHEN 325 MG TABLET 650 MG PO (23:08)
[2024-05-26] VITALS (10 sets, daily range): BP systolic 111–144; BP diastolic 53–91; PULSE 50–69; RESP 16–97; TEMP 36.1–36.8; O2SAT 91–98; BMI 25.5
[2024-05-26] MEDS: METOCLOPRAMIDE INJ 5 MG/ML VIAL 2 ML IVP ×4 (05:06→23:39)
[2024-05-26 05:50] LABS: Basophils % (Auto) 0 % (0-2.5); Eosinophils # (Auto) 0.2 Thou/mm3 (0.0-0.5); Eosinophils % (Auto) 3 % (0-10); Hematocrit 24.6 % (36.0-46.0); Immature Granulocytes % (Auto) 0 % (0-0); Immature Granulocytes Auto 0.02 Thou/mm3 (0.00-0.00); Lymphocytes # (Auto) 1.4 Thou/mm3 (1.0-4.8); Lymphocytes % (Auto) 22 % (10-50); Mean Corpuscular HGB Conc 32.1 g/dl (31.0-37.0); Mean Corpuscular Hemoglobin 31.2 pg (25.0-35.0); Mean Corpuscular Volume 97 fL (80-100); Monocytes # (Auto) 0.7 Thou/mm3 (0.0-0.8); Monocytes % (Auto) 11 % (0-12); Neutrophils % (Auto) 64 % (37-80); Nucleated Red Blood Cell % 0 /100 WBC (0); Platelet Count 135 Thou/mm3 (140-440); RDW Standard Deviation 66.6 fL (36.4-46.3); Red Blood Count 2.53 Miln/mm3 (4.00-5.20); White Blood Count 6.2 Thou/mm3 (3.6-11.0)
[2024-05-26 05:52] LABS: Hemoglobin 7.9 g/dL (12.0-16.0)
[2024-05-26 06:26] LABS: Albumin, Serum 3.4 gm/dL (3.4-4.8); Anion Gap 8 (7-16); BUN/Creatinine Ratio 39 Ratio (12-20); Blood Urea Nitrogen 78 mg/dL (9-23); Calcium (Corrected) 10.5 mg/dL (8.5-10.1); Carbon Dioxide 30.6 mMol/L (20.0-31.0); Chloride 107 mMol/L (98-107); Estimated Creatinine Clearance 17.8 mL/min (>60); Glucose 261 mg/dL (74-106); Magnesium 2.3 mg/dL (1.6-2.6); Osmolality,Calculated 322 (275-295); Phosphorous 2.8 mg/dL (2.4-5.1); Sodium 146 mMol/L (136-145); eGFR 24 See Note
[2024-05-26] MEDS: INSULIN LISPRO (AdmeLOG) 1 UNIT/0.01 ML UNIT SC ×4 (07:50→20:34)
--- NOTE | 2024-05-26 09:11 | PC.SS ---
Addendum entered by Traci Carrera 05/26/24 12:52: SS follow up note; HMG is being monitored at the time. Original Note: SS follow up note; Possible colonoscopy if family accepts.
[2024-05-26] MEDS: PANTOPRAZOLE INJ 40 MG VIAL IVP ×2 (09:49→20:20)
[2024-05-26] MEDS: FERRIC SOD GLUC INJ 125 MG in SODIUM CHLORIDE 0.9% 100 ML 110 MG IV (09:50)
[2024-05-26] MEDS: RINGERS LACTATED 1000 ML 500 ML 999 ML IV (10:12)
--- NOTE | 2024-05-26 11:45 | ESPR_ITS ---
<Statement entered by Daniele Cortez MD - 05/26/24 15:28> Patient was seen and examined at the bedside. Overnight, patient's family reported that patient's foot was pressed under bed rail and was bruised. Foot x-ray was ordered which showed no acute fracture. This morning when we evaluate the patient's left foot toe fingers it appeared to be bruised however better than yesterday. Patient was able to wiggle her toes. Patient did had a hemoglobin drop at 7.9. Kidney functions consistent with CKD pattern. Patient's family did not wanted to proceed with colonoscopy given risk of patient's decompensation therefore we will keep her today and monitor hemoglobin. Added blood sugars every 6 hourly and fluid bolus was given x 1 due to soft blood pressure. All labs and orders were reviewed. I saw and examined the patient, and I agree with current management stated by Dr Prakash MD,PGY1. Plan of care was discussed with the attending physician and resident physician. Disclaimer: Despite multiple revisions, due to the dictation software being used, the document bellow may not be free of grammatical errors including phonetic/typographic errors. However, this does not deter from our commitment to providing health care in the patient's best interest in mind. Dr. Dana MD, PGY 2 Documentation for date of: 05/26/24 Subjective Subjective Interval history: No acute overnight events noted, however, nursing staff reported that right lower extremity was found under bed rail. X-ray did not reveal any acute disease processes. Otherwise, patient was seen and examined at bedside with family present. Discussed whether they wanted to pursue with colonoscopy and stated that they would like to forego procedure as she would likely not tolerate GoLytely prep. Additionally, GI states that although patient needs it, she is not a candidate. At this time, will monitor patient's hemoglobin as it has continued to downtrend after initial transfusion. If remains stable, anticipate discharge within the next 24 hours. Exam Vital Signs Temp Pulse Resp BP Pulse Ox O2 Del Method O2 Flow Rate 97.4 F 62 18 136/91 H 94 L Room Air 1 05/26/24 08:00 05/26/24 08:00 05/26/24 08:00 05/26/24 08:00 05/26/24 08:00 05/26/24 08:00 05/26/24 04:00 Narrative Exam General: Alert and oriented to self/birthdate/town, no acute distress, able to speak in 3-4 word sentences HEENT: Oral cavity with dried blood noted, NC/AT, bilateral sclera anicteric Cardiovascular: regular rate and rhythm, S1/S2 present, no murmurs appreciated Pulmonary: clear to auscultation bilaterally, no rales/rhonchi/wheezes Abdominal: Epigastric tenderness, soft, non-distended, normal bowel sounds present Musculoskeletal: Right lower extremity swollen ankle, bruising and third/fourth/fifth dorsal aspect of toes noted Skin: Chronic venous stasis Neuro: CN II-XII intact, no focal deficits Objective Labs 05/26/24 04:51 05/26/24 04:51 Labs: Laboratory Results - last 24 hr 05/25/24 05/26/24 05:48 04:51 WBC 6.2 RBC 2.53 L Hgb 7.9 L Hct 24.6 L MCV 97 MCH 31.2 MCHC 32.1 RDW Std Deviation 66.6 H Plt Count 135 L Neut % (Auto) 64 Lymph % (Auto) 22 [place] % (Auto) 11 Eos % (Auto) 3 Baso % (Auto) 0 Neut # (Auto) 4.0 Lymph # (Auto) 1.4 [place] # (Auto) 0.7 Eos # (Auto) 0.2 Baso # (Auto) 0.0 Immature Gran # (Auto) 0.02 H Absolute Nucleated RBC 0.00 Immature Gran % 0 Nucleated RBC % 0 Sodium 146 H Potassium 4.0 Chloride 107 Carbon Dioxide 30.6 Anion Gap 8 BUN 78 H Creatinine 2.0 H Estim Creat Clear Calc 17.8 L eGFR 24 L BUN/Creatinine Ratio 39 H Glucose 261 H D Calculated Osmolality 322 H Calcium 10.0 Corrected Calcium 10.5 H Phosphorus 2.8 Magnesium 2.3 Iron 26 L TIBC 255 Iron Saturation 10 L Unsat Iron Binding 229 Ferritin 30 Albumin 3.4 Quality Measures Quality Measures VTE prophylaxis (SCDs) Advance care planning discussed with:: other Assessment & Plan Assessment Current Active Medications: Generic Name Dose Route Start Last Admin Trade Name Freq PRN Reason Stop Dose Admin Acetaminophen 650 mg 05/23/24 16:19 Acetaminophen Supp 650 Mg Supp VT 06/22/24 16:18 Q6HR PRN Fever > 100.4 Protocol Acetaminophen 650 mg 05/25/24 14:28 05/25/24 23:08 Acetaminophen 325 Mg Tablet PO 06/24/24 14:27 650 mg Q6HR PRN Administration Fever >100.4 or pain Albuterol/Ipratropium 3 ml 05/23/24 18:57 Albuterol/Ipratropium (Duoneb) Rt Marina 3 Ml Nebu INH 06/22/24 18:59 Q4HRRT PRN wheezing Dextrose 25 ml 05/23/24 18:07 Dextrose 50%-Water Inj 50 Ml Syringe IV 06/22/24 18:06 Q15MIN PRN BG 50-70 responsive npo pt Dextrose 50 ml 05/23/24 18:07 Dextrose 50%-Water Inj 50 Ml Syringe IV 06/22/24 18:06 Q15MIN PRN BG <50 OR BG <70 & pt unresponsive Glucagon 1 mg 05/23/24 18:07 Glucagon Inj 1 Mg Vial IM Q15MIN PRN BG <70, and no IV access Ferric Sodium Gluconate 125 mg 110 mls @ 110 mls/hr 05/25/24 14:20 05/26/24 09:50 / Sodium Chloride IV 06/01/24 09:59 110 mls/hr QDAY ROCK Administration Insulin Human Lispro 0 unit 05/26/24 07:30 05/26/24 07:50 Insulin Lispro (Admelog) 1 Unit/0.01 Ml Unit SC 06/25/24 07:29 2 unit ACHS ROCK Administration Protocol Metoclopramide HCl 5 mg 05/24/24 12:00 05/26/24 05:06 Metoclopramide Inj 5 Mg/Ml Vial 2 Ml IVP 06/23/24 11:59 5 mg Q6HR ROCK Administration Protocol Ondansetron HCl 4 mg 05/23/24 16:19 Ondansetron Inj 2 Mg/Ml Inj 2 Ml IV 06/22/24 16:18 Q6H PRN NAUSEA OR VOMITING Protocol Pantoprazole Sodium 40 mg 05/24/24 21:00 05/26/24 09:49 Pantoprazole Inj 40 Mg Vial IVP 06/23/24 20:59 40 mg BID ROCK Administration Plan Glenis Bustamante 83-y/o female PMHx HTN, A-fib on Eliquis, T2DM, COPD admitted on 05/23 from SNF for GI bleed (melena, hematemesis) and sepsis 2/2 UTI. #Upper versus lower GI bleed #Acute blood loss anemia Melena and hematemesis, FOBT positive. Endorse abdominal pain but somnolent on exam. Hemoglobin dropped from 7.9 to 6.8. On Eliquis for A-fib, currently held. Transfused 2 units PRBC, hemoglobin stable at 9.1. EGD on 05/24: 12 mm ulcer that was not bleeding ? Protonix 40 mg IV twice daily ? GI consulted, appreciate recommendations ? Monitor CBC and transfuse as needed #Sepsis secondary to UTI #Urinary tract infection UA showed cloudy urine with 911 WBC, urine bacteria with endorgan damage (ELBA). Ceftriaxone (05/23-05/25) ? Blood cultures 05/23: Pending ? Urine culture uncollected #Acute on chronic encephalopathy in setting of advanced dementia, resolved CT head: negative for bleed, masses, midline shift Passed speech swallow evaluation. #Lactic acidosis, type A in setting of blood loss, improving #Elevated anion gap Lactic acid 11, down trended to 9. 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 ? Avoid nephrotoxic agents, renally dose medications ? Strict I's and O's, PureWick catheter placed ? Follow-up a.m. labs and replete as necessary #NSTEMI type II, demand ischemia Troponin 0.054 -> 0.091 -> 0.117 -> 0.110. EKG showed chronic A-fib with RBBB, QTc 500, HR 103. ? Avoid QTc prolonging agents #History of hypertension No antihypertensives on med rec from SNF #History of A-fib ? Resumed Eliquis 2.5 mg p.o. twice daily ? Mg > 2, K > 4 #History of COPD ? As needed breathing treatments, PRN oxygen #History of T2DM ? SSI, hypoglycemia protocol Hospital management: Disposition: Status post EGD, family decided to forego colonoscopy, will monitor hemoglobin for 1 more night Fluids: none Diet: Peptic ulcer diet Lines: PIV DVT prophylaxis: SCDs GI prophylaxis: pantoprazole 40 mg IV BID CODE STATUS: DNR ----- Plan discussed with attending physician Dr. Pat and senior resident physician Dr. Dana Randall MD PGY-1 Internal Medicine Attending Provider Attestation/Addendum I have discussed and was present for the essential components of the history, physical examination, diagnosis, and treatment plan with the resident. I agree with the patient's care as documented by the resident and amended herein by me. Dillon Pat, DO. Patient seen and evaluated this AM. No acute events overnight, vital signs stable, patient afebrile, significant labs include a downtrending hemoglobin to 7.9, sodium 146, BUN 78 which is down trended and a stable creatinine of 2. EGD performed 2 days ago showed a small 12 mm nonbleeding gastric ulcer, for some reason the EGD report is not showing in the EMR, per gastroenterology the patient is not a candidate for colonoscopy and the family does not want to pursue that regardless. Will monitor the patient tonight monitor hemoglobin, transfuse for hemoglobin less than 7, continue Protonix and continue holding Eliquis. Gastroenterology recommendations are appreciated. Although this document has been carefully reviewed, there may still be some phonetic and other typographical errors. These errors are purely grammatical due to imperfections in the software program and should not be construed in any way to compromise the substance of the patient's medical care during this visit.
--- NOTE | 2024-05-26 19:51 | PC.NURSE ---
PT REFUSING RIGHT LEG TO BE ELEVATED D/T PAIN WHEN UP ON PILLOW. EXPLAINED THAT IT WILL HELP WITH SWELLING. PT REFUSED AT THIS TIME
[2024-05-26] MEDS: INSULIN GLARGINE (Lantus) 5 UNIT/0.05 ML (PER 5 UNITS) 10 UNIT SC (20:33)
[2024-05-26] MEDS: ACETAMINOPHEN 325 MG TABLET 650 MG PO (20:33)
--- NOTE | 2024-05-26 21:27 | PD.IMPROG ---
Documentation for date of: 05/26/24 Subjective Subjective Interval history: Endoscopy team is working on the racquet to get the EGD report transferring to the system It showed gastric ulcer 12 mm and gastritis Downward trending hemoglobin hematocrit at 7.9 and 24.6 Lets see what the CBC shows tomorrow then we will make a decision Exam Vital Signs Temp Pulse Resp BP Pulse Ox O2 Del Method O2 Flow Rate 97.2 F 66 16 136/68 H 96 Room Air 1 05/26/24 16:00 05/26/24 20:00 05/26/24 16:00 05/26/24 16:00 05/26/24 16:00 05/26/24 16:00 05/26/24 04:00 Objective Labs 05/26/24 04:51 05/26/24 04:51 Labs: Laboratory Results - last 24 hr 05/26/24 04:51 WBC 6.2 RBC 2.53 L Hgb 7.9 L Hct 24.6 L MCV 97 MCH 31.2 MCHC 32.1 RDW Std Deviation 66.6 H Plt Count 135 L Neut % (Auto) 64 Lymph % (Auto) 22 [place] % (Auto) 11 Eos % (Auto) 3 Baso % (Auto) 0 Neut # (Auto) 4.0 Lymph # (Auto) 1.4 [place] # (Auto) 0.7 Eos # (Auto) 0.2 Baso # (Auto) 0.0 Immature Gran # (Auto) 0.02 H Absolute Nucleated RBC 0.00 Immature Gran % 0 Nucleated RBC % 0 Sodium 146 H Potassium 4.0 Chloride 107 Carbon Dioxide 30.6 Anion Gap 8 BUN 78 H Creatinine 2.0 H Estim Creat Clear Calc 17.8 L eGFR 24 L BUN/Creatinine Ratio 39 H Glucose 261 H D Calculated Osmolality 322 H Calcium 10.0 Corrected Calcium 10.5 H Phosphorus 2.8 Magnesium 2.3 Albumin 3.4 Impressions Impression: Gastric ulcer Posthemorrhagic anemia Downward trending hemoglobin hematocrit Continue to monitor CBC Assessment & Plan A&P Narrative # Acute GI bleed with hematemesis and melena in the setting of Eliquis for atrial fibrillation Agree with blood transfusion Resuscitate the patient Let the family decide how aggressive they want to be then I will make a decision when to do an upper endoscopy or not do that at all if she is going to be a comfort care Other medical problems include # Chronic atrial fibrillation on Eliquis which is being held # Essential hypertension # Diabetes mellitus type 2 # COPD # Elevated troponin # Lactic acidosis # ELBA with dehydration Thank you for the opportunity to participate in the care of this patient Time Spent With Patient Time: Total time spent is greater than 50% in coordination of care (as documented) at patient's floor/unit and/or counseling patient:
[2024-05-26] MEDS: POLYETHYLENE GLYCOL 17 GM PACKET PO (23:40)
[2024-05-27] VITALS (8 sets, daily range): BP systolic 127–157; BP diastolic 57–80; PULSE 55–72; RESP 14–97; TEMP 35.9–36.3; O2SAT 95–98; BMI 26.4
[2024-05-27] MEDS: METOCLOPRAMIDE INJ 5 MG/ML VIAL 2 ML IVP ×4 (05:13→23:11)
[2024-05-27 05:44] LABS: Basophils % (Auto) 0 % (0-2.5); Eosinophils # (Auto) 0.3 Thou/mm3 (0.0-0.5); Eosinophils % (Auto) 4 % (0-10); Hematocrit 25.3 % (36.0-46.0); Immature Granulocytes % (Auto) 1 % (0-0); Immature Granulocytes Auto 0.05 Thou/mm3 (0.00-0.00); Lymphocytes % (Auto) 28 % (10-50); Mean Corpuscular HGB Conc 32.4 g/dl (31.0-37.0); Mean Corpuscular Hemoglobin 31.4 pg (25.0-35.0); Mean Corpuscular Volume 97 fL (80-100); Monocytes # (Auto) 0.7 Thou/mm3 (0.0-0.8); Monocytes % (Auto) 10 % (0-12); Neutrophils # (Auto) 4.1 Thou/mm3 (1.8-7.7); Neutrophils % (Auto) 57 % (37-80); Nucleated Red Blood Cell # 0.02 Thou/mm3 (0.00-0.00); Nucleated Red Blood Cell % 0 /100 WBC (0); Platelet Count 124 Thou/mm3 (140-440); RDW Standard Deviation 62.1 fL (36.4-46.3); Red Blood Count 2.61 Miln/mm3 (4.00-5.20); White Blood Count 7.2 Thou/mm3 (3.6-11.0)
[2024-05-27 06:00] LABS: Hemoglobin 8.2 g/dL (12.0-16.0)
[2024-05-27 06:11] LABS: Anion Gap 5 (7-16); BUN/Creatinine Ratio 31 Ratio (12-20); Blood Urea Nitrogen 46 mg/dL (9-23); Calcium 10.1 mg/dL (8.3-10.6); Chloride 105 mMol/L (98-107); Creatinine (Component) 1.5 mg/dL (0.6-1.3); Estimated Creatinine Clearance 23.8 mL/min (>60); Glucose 163 mg/dL (74-106); Magnesium 1.9 mg/dL (1.6-2.6); Osmolality,Calculated 293 (275-295); Phosphorous 2.3 mg/dL (2.4-5.1); Potassium 4.2 mMol/L (3.4-5.1); Sodium 139 mMol/L (136-145); eGFR 34 See Note
[2024-05-27] MEDS: NAPH,KPH MBDB 1 PACKET (1.5 GM) 2 PACKET PO (07:33)
[2024-05-27] MEDS: Magnesium Sulfate 2 GM Ivpb 2 GM/50 ML BAG IV (07:33)
[2024-05-27] MEDS: INSULIN LISPRO (AdmeLOG) 1 UNIT/0.01 ML UNIT SC ×4 (07:50→20:11)
[2024-05-27] MEDS: FERRIC SOD GLUC INJ 125 MG in SODIUM CHLORIDE 0.9% 100 ML 110 MG IV (09:01)
[2024-05-27] MEDS: PANTOPRAZOLE INJ 40 MG VIAL IVP ×2 (09:01→20:11)
--- NOTE | 2024-05-27 09:38 | PC.SS ---
Update: Plan is to continue monitoring patient's hemoglobin. Possible d/c home later today.
--- NOTE | 2024-05-27 10:45 | CHAP ---
Patient was visited by a Spiritual Care Volunteer on 05/27/2024 between 0910 and [id number] and received comfort, encouragement and/or prayer.
--- NOTE | 2024-05-27 11:13 | ESDS_ITS ---
<Statement entered by Daniele Cortez MD - 05/27/24 14:45> Patient was seen and examined at the bedside. Hemoglobin remained stable this morning. No acute overnight events were reported. Family was explained that we can continue Eliquis 2.5 twice daily given risk of stroke being higher as [id number] is 4 however, has bled is 4 as well. Therefore recommended to continue Eliquis to prevent any future stroke. Patient is currently awaiting bowel movements and was given bowel regimen. Anticipating discharge today. I saw and examined the patient, and I agree with current management stated by Dr Prakash MD,PGY1. Plan of care was discussed with the attending physician and resident physician. Disclaimer: Despite multiple revisions, due to the dictation software being used, the document bellow may not be free of grammatical errors including phonetic/typographic errors. However, this does not deter from our commitment to providing health care in the patient's best interest in mind. Dr. Dana MD, PGY 2 Planned Discharge Date 05/27/24 DS: Providers Provider Date of admission: 05/23/24 16:35 Primary care physician: Physician No Primary/Family Admitting Provider: Jacky Pat DO Attending Provider on Admission: Jacky Pat DO Consults: 05/23/24 13:44 Consult to Gastroenterology Stat Comment: GIB Consulting Provider: Moe Knight 05/23/24 18:07 Referral Speech Therapy Routine Comment: 05/25/24 18:20 Referral Wound Care Routine Comment: DTI to Right foot and L great toe Attending Provider on DC: Nicko Randall MD Discharging Provider: Nicko Randall MD DS: Diagnosis Problem List Completed Was Problem List Reviewed/Reconciled?: Yes Hospital Course Hospital Course Hospital course: Glenis Bustamante is an 83-year-old female with PMHx of A-fib on Eliquis, T2DM, HTN, COPD who presented on 05/23 from SNF with acute encephalopathy and GI bleed. Per EMS, patient had an episode of ground coffee emesis and melena in the morning. Upon time evaluation, patient was somnolent and history had to be obtained from chart review. Daughter was at the bedside and reported that her baseline is usually only oriented to herself. POLST form from SNF states she is DNR/DNI with selective treatment. Attending physician spoke to the patient's daughter and explained that patient is severely sick at this time and will likely reach out to GI specialist in terms of requiring invasive procedures (i.e. EGD, colonoscopy). Eliquis for A-fib was held and patient was transfused 2 units PRBC. Following day family agreed to undergo EGD, which revealed a 12 mm nonbleeding gastric ulcer. GI stated that patient does need a colonoscopy but was not a candidate. Also spoke to family regarding this topic and decided to forego colonoscopy as patient would likely not tolerate preparation. Given presentation and exam findings of epigastric abdominal pain, suspect that source of bleed may be further into small intestine that was unable to be scoped. All findings, options, and further plans were discussed with family present at bedside and all are in agreement. Initially plan for discharge on 05/26 but hemoglobin was starting to downtrend but stabilized on following day at 8.2. Spoke to daughter at bedside regarding risks and benefits of continuing versus discontinuing Eliquis and decided to continue with Eliquis, and GI in agreement. Mentation also improved compared to admission, as patient was alert and oriented to self/birthdate/year/place. Informed family to be cautious for any signs of bleeding while continuing Eliquis and the risk of bleed will be increased, but also understand its role in stroke prevention. Will also be discharged with Protonix 40 mg twice daily, ferrous sulfate, and resuming her home Eliquis of 2.5 mg twice daily. 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 with significant azotemia #Hyperkalemia, resolved #Hypercalcemia #Hypomagnesemia, resolved #NSTEMI type II, demand ischemia #History of hypertension #History of A-fib #History of COPD #History of T2DM Discharge instructions: - Restart taking eliquis 2.5 mg twice per day for stroke prevention - Be cautious for any signs of bleeding (red vomit, dark stools, blood in stools, dark/red urine) - Start taking ferrous sulfate 325 mg orally every other day - Start pantoprazole 40 mg orally twice per day - Follow-up with your PCP within 1 week of discharge - Continue all other home medications as prescribed - Return to the ED if symptoms worsen or recur Time Spent with Patient Time attestation: Total time spent providing and/or coordinating discharge services: Exam Vital Signs Temp Pulse Resp BP Pulse Ox O2 Del Method O2 Flow Rate 96.6 F L 60 21 H 156/77 H 97 Room Air 1 05/27/24 08:00 05/27/24 11:11 05/27/24 11:11 05/27/24 08:00 05/27/24 11:11 05/27/24 08:00 05/26/24 04:00 Narrative Exam General: Alert and oriented to self/birthdate/town, no acute distress, able to speak in 3-4 word sentences HEENT: Oral cavity with dried blood noted, NC/AT, bilateral sclera anicteric Cardiovascular: regular rate and rhythm, S1/S2 present, no murmurs appreciated Pulmonary: clear to auscultation bilaterally, no rales/rhonchi/wheezes Abdominal: Epigastric tenderness, soft, non-distended, normal bowel sounds present Musculoskeletal: Right lower extremity swollen ankle, bruising and third/fourth/fifth dorsal aspect of toes noted Skin: Chronic venous stasis Neuro: CN II-XII intact, no focal deficits Discharge Plan Plan Patient Disposition: Xfer Skilled Nsg Fac (SNF) Care Plan Goals: - Restart taking eliquis 2.5 mg twice per day for stroke prevention - Be cautious for any signs of bleeding (red vomit, dark stools, blood in stools, dark/red urine) - Start taking ferrous sulfate 325 mg orally every other day - Start pantoprazole 40 mg orally twice per day - Follow-up with your PCP within 1 week of discharge - Continue all other home medications as prescribed - Return to the ED if symptoms worsen or recur Prescriptions/Referrals Prescriptions/Med Rec: New pantoprazole 40 mg tablet,delayed release (DR/EC) 40 mg PO BID 30 Days Qty: 60 0RF ferrous sulfate 325 mg (65 mg iron) tablet 325 mg PO Q OTHER DAY Qty: 30 0RF Continued insulin glargine [Lantus U-100 Insulin] 100 U/ML solution 18 unit Sub-Q QAM Qty: 0 Rx Instructions: Hold if BS<110. nitroglycerin [Nitrostat] 0.4 MG tablet, sublingual 0.4 mg SL PRN PRN (Reason: Chest Pain) Qty: 0 Rx Instructions: x15min prn. Culturelle 1 CAP capsule 1 cap PO QDAY Qty: 0 digoxin 125 MCG tablet 125 mcg PO UD Qty: 0 Rx Instructions: sunday thru sunday only. hydrocodone-acetaminophen 7.5-300 mg Tablet 1 tab PO Q6H PRN (Reason: Pain) Qty: 0 acetaminophen [Tylenol] 325 mg Tablet 650 mg PO Q6H PRN (Reason: pain or fever) ferrous sulfate 325 mg (65 mg iron) Tablet 325 mg PO BID insulin lispro [Humalog U-100 Insulin] 100 unit/mL Solution 10 unit subcut USEASDIRECTD Rx Instructions: Before lunch and dinner, hold for blood sugar<100. trolamine salicylate [Aspercreme] 10 % Cream 1 applic TOPICAL Q4H PRN (Reason: knee pain) cranberry extract 425 mg Capsule 425 mg PO QDAY magnesium hydroxide [Milk of Magnesia] 400 mg/5 mL Suspension 30 ml PO Q72H PRN (Reason: Constipation) metformin 1,000 mg Tablet 1,000 mg PO BID Fleet Enema 19-7 gram/118 mL Enema 118 ml NH Q72H PRN (Reason: Constipation) docusate sodium 250 mg Capsule 250 mg PO BID Saline Nasal Mist 0.65 % Aerosol,[place] 2 spray INTRANASAL BID verapamil 120 mg Tablet Extended Release 240 mg PO QDAY Qty: 60 0RF Eliquis 2.5 mg tablet 2.5 mg PO BID Qty: 30 0RF No Action verapamil 240 mg tablet extended release 240 mg PO QDAY Referrals: No Primary/Family,Physician [Primary Care Provider] - Patient/Caregiver Discharge Instructions Print Language: Occitan Stand Alone Forms: Natasha Award Info., Patient Portal Info Letter Discharge Order Discharge Orders: Discharge (Routine); Ordered 05/27/24 Ordered By: Daniele Cortez Quality Discharge Quality Measures VTE prophylaxis Attestestation Attestation I reviewed labs, imaging, EKG, home medications and prior available records. Face to face evaluation was performed by me. I have personally examined the patient and discussed assessment and plan with the IM team. I reviewed the resident note and agree with the plan with exceptions as below. GI bleed ELBA Acute UTI Atrial fibrillation with controlled ventricular response Thrombocytopenia EGD showed gastric ulcer 12 mm. Continue PPI twice daily Family decided not to pursue with colonoscopy Monitor H&H Monitor kidney function: Creatinine improved. Could be at the new baseline Platelet level is stable. Monitor for bleeding and monitor platelet level Resume Eliquis at 2.5 mg twice daily in the setting of GI bleed and age/creatinine clearance
[2024-05-27] MEDS: POLYETHYLENE GLYCOL 17 GM PACKET PO (12:08)
[2024-05-27] MEDS: SENNA TABLET 1 TAB PO (12:08)
--- NOTE | 2024-05-27 13:20 | PC.SS ---
RELATIONSHIP ASSOCIATE conducted bedside contact with the patient conduct initial assessment and to discuss discharge planning.? At bedside with patient was daughter, Ronda Johnson .? Daughter provided information for assessment and discharge planning.? Patient is a detention resident of [facility].? Patient has resided at the [facility] for approximately 2.5 years.? Patient is wheel chair bound.? Patient does not utilize oxygen at the facility.? Patient?s surrogate medical decision maker is daughter Ronda Johnson.? Patient utilizes facility PCP for medical services.? The patient does not possess any specialty providers.? Patient is diabetic insulin dependent.? Discharge plan is for the patient to return to [facility] at the time of discharge.? Compensation Specialist will arrange transportation on behalf at the patient at the time of discharge.? No further intervention required at this time, social insurance administrator will be available to address any further concerns.? Next of Kin: Ronda Johnson D/C Plan: [facility]
[2024-05-27] MEDS: bisacodyL 10 MG SUPP PR (14:33)
--- NOTE | 2024-05-27 16:44 | PC.NURSE ---
Pt pending discharge but has not had BM yet. Last BM on 05/23. Senna miralax and suppository given. Pt stated is passing gas, bowel sounds active. Pt stated does not want to try and get up to commode or go on bed sand[place]. Dr. Randall notified.
[2024-05-27] MEDS: INSULIN GLARGINE (Lantus) 5 UNIT/0.05 ML (PER 5 UNITS) 10 UNIT SC (20:11)
--- NOTE | 2024-05-27 21:22 | ESPR_ITS ---
Documentation for date of: 05/27/24 Subjective Subjective Interval history: Hemoglobin hematocrit 8.2 and 25.3 Agree with discharge planning Exam Vital Signs Temp Pulse Resp BP Pulse Ox O2 Del Method O2 Flow Rate 97.0 F 71 16 143/65 H 96 Room Air 1 05/27/24 20:00 05/27/24 20:00 05/27/24 20:00 05/27/24 20:00 05/27/24 20:00 05/27/24 20:00 05/26/24 04:00 Objective Labs 05/27/24 04:45 05/27/24 04:45 Labs: Laboratory Results - last 24 hr 05/27/24 04:45 WBC 7.2 RBC 2.61 L Hgb 8.2 L Hct 25.3 L MCV 97 MCH 31.4 MCHC 32.4 RDW Std Deviation 62.1 H Plt Count 124 L Neut % (Auto) 57 Lymph % (Auto) 28 [place] % (Auto) 10 Eos % (Auto) 4 Baso % (Auto) 0 Neut # (Auto) 4.1 Lymph # (Auto) 2.0 [place] # (Auto) 0.7 Eos # (Auto) 0.3 Baso # (Auto) 0.0 Immature Gran # (Auto) 0.05 H Absolute Nucleated RBC 0.02 H Immature Gran % 1 H Nucleated RBC % 0 Sodium 139 Potassium 4.2 Chloride 105 Carbon Dioxide 29.0 Anion Gap 5 L BUN 46 H Creatinine 1.5 H D Estim Creat Clear Calc 23.8 L eGFR 34 L BUN/Creatinine Ratio 31 H Glucose 163 H D Calculated Osmolality 293 Calcium 10.1 Phosphorus 2.3 L Magnesium 1.9 Impressions Impression: Posthemorrhagic anemia Gastritis Esophagitis Gastric ulcer Agree with discharge planning No need for GI follow-up Patient can be followed by her PCP Assessment & Plan A&P Narrative # Acute GI bleed with hematemesis and melena in the setting of Eliquis for atrial fibrillation Agree with blood transfusion Resuscitate the patient Let the family decide how aggressive they want to be then I will make a decision when to do an upper endoscopy or not do that at all if she is going to be a comfort care Other medical problems include # Chronic atrial fibrillation on Eliquis which is being held # Essential hypertension # Diabetes mellitus type 2 # COPD # Elevated troponin # Lactic acidosis # ELBA with dehydration Thank you for the opportunity to participate in the care of this patient Time Spent With Patient Time: Total time spent is greater than 50% in coordination of care (as documented) at patient's floor/unit and/or counseling patient:
--- NOTE | 2024-05-27 23:22 | PC.NURSE ---
STILL NO BM. PT IS PASSING GAS. DR. PRINCE MADE AWARE. NEW ORDERS TO BE PLACED
[2024-05-28] VITALS (12 sets, daily range): BP systolic 138–158; BP diastolic 74–96; PULSE 63–80; RESP 15–98; TEMP 36.1–36.7; O2SAT 95–98
--- NOTE | 2024-05-28 00:15 | PC.NURSE ---
Pt got transferred from room 265 to room 368, pt has no C/O of pain at this time. Will continue to monitor.
[2024-05-28] MEDS: METOCLOPRAMIDE INJ 5 MG/ML VIAL 2 ML IVP ×2 (05:15→23:33)
[2024-05-28 06:07] LABS: Basophils % (Auto) 0 % (0-2.5); Eosinophils # (Auto) 0.3 Thou/mm3 (0.0-0.5); Eosinophils % (Auto) 3 % (0-10); Hematocrit 27.9 % (36.0-46.0); Immature Granulocytes % (Auto) 1 % (0-0); Immature Granulocytes Auto 0.09 Thou/mm3 (0.00-0.00); Lymphocytes # (Auto) 1.8 Thou/mm3 (1.0-4.8); Lymphocytes % (Auto) 23 % (10-50); Mean Corpuscular HGB Conc 32.3 g/dl (31.0-37.0); Mean Corpuscular Hemoglobin 31.4 pg (25.0-35.0); Mean Corpuscular Volume 97 fL (80-100); Monocytes # (Auto) 0.8 Thou/mm3 (0.0-0.8); Monocytes % (Auto) 11 % (0-12); Neutrophils # (Auto) 4.7 Thou/mm3 (1.8-7.7); Neutrophils % (Auto) 61 % (37-80); Nucleated Red Blood Cell % 0 /100 WBC (0); Platelet Count 133 Thou/mm3 (140-440); RDW Standard Deviation 60.6 fL (36.4-46.3); Red Blood Count 2.87 Miln/mm3 (4.00-5.20); White Blood Count 7.7 Thou/mm3 (3.6-11.0)
[2024-05-28 06:43] LABS: Alanine Aminotransferase 11 U/L (10-49); Albumin, Serum 3.6 gm/dL (3.4-4.8); Albumin/Globulin Ratio 1.4 (1.2-2.2); Alkaline Phosphatase 53 U/L (46-116); Anion Gap 7 (7-16); Aspartate Amino Transferase 22 U/L (0-34); BUN/Creatinine Ratio 34 Ratio (12-20); Bilirubin,Total 0.4 mg/dL (0.3-1.2); Blood Urea Nitrogen 44 mg/dL (9-23); Calcium 10.7 mg/dL (8.3-10.6); Carbon Dioxide 31.2 mMol/L (20.0-31.0); Chloride 103 mMol/L (98-107); Creatinine (Component) 1.3 mg/dL (0.6-1.3); Globulin 2.6 gm/dL (2.3-3.5); Glucose 172 mg/dL (74-106); Magnesium 2.1 mg/dL (1.6-2.6); Osmolality,Calculated 296 (275-295); Phosphorous 2.7 mg/dL (2.4-5.1); Potassium 4.4 mMol/L (3.4-5.1); Sodium 141 mMol/L (136-145); Total Protein 6.2 gm/dL (5.7-8.2); eGFR 41 See Note
[2024-05-28] MEDS: INSULIN LISPRO (AdmeLOG) 1 UNIT/0.01 ML UNIT SC ×4 (07:54→20:32)
[2024-05-28] MEDS: PANTOPRAZOLE INJ 40 MG VIAL IVP ×2 (08:01→20:29)
--- NOTE | 2024-05-28 08:32 | ESPR_ITS ---
<Statement entered by Daniele Cortez MD - 05/29/24 09:55> I saw and examined the patient, and I agree with current management stated by Dr Prakash MD,PGY1. Plan of care was discussed with the attending physician and resident physician. Disclaimer: Despite multiple revisions, due to the dictation software being used, the document bellow may not be free of grammatical errors including phonetic/typographic errors. However, this does not deter from our commitment to providing health care in the patient's best interest in mind. Dr. Dana MD, PGY 2 Documentation for date of: 05/28/24 Subjective Subjective Interval history: No acute overnight events noted. Patient seen and examined at bedside, did not have any complaints other than the room being too warm. She appears much more alert and energetic today per family. Denies abdominal pain, nausea, vomiting, fever, chills. Per family, she does not have regular bowel movements at her facility. Spoke to GI, recommends rectal exam and possible manual disimpaction prior to going back to SNF. Exam Vital Signs Temp Pulse Resp BP Pulse Ox O2 Del Method O2 Flow Rate 97.1 F 75 18 142/82 H 97 Room Air 1 05/29/24 08:00 05/29/24 08:00 05/29/24 08:00 05/29/24 08:00 05/29/24 08:00 05/29/24 08:00 05/28/24 16:00 Narrative Exam General: Alert and oriented to self/birthdate/town, no acute distress, able to speak in 3-4 word sentences HEENT: Oral cavity with dried blood noted, NC/AT, bilateral sclera anicteric Cardiovascular: regular rate and rhythm, S1/S2 present, no murmurs appreciated Pulmonary: clear to auscultation bilaterally, no rales/rhonchi/wheezes Abdominal: Epigastric tenderness, soft, non-distended, normal bowel sounds present Musculoskeletal: Right lower extremity swollen ankle, bruising and third/fourth/fifth dorsal aspect of toes noted Skin: Chronic venous stasis Neuro: CN II-XII intact, no focal deficits Objective Labs 05/29/24 05:43 05/29/24 05:43 Labs: Laboratory Results - last 24 hr 05/29/24 05:43 WBC 7.8 RBC 2.53 L Hgb 8.0 L Hct 24.3 L MCV 96 MCH 31.6 MCHC 32.9 RDW Std Deviation 58.9 H Plt Count 128 L Neut % (Auto) 67 Lymph % (Auto) 19 [place] % (Auto) 11 Eos % (Auto) 2 Baso % (Auto) 0 Neut # (Auto) 5.2 Lymph # (Auto) 1.5 [place] # (Auto) 0.8 Eos # (Auto) 0.2 Baso # (Auto) 0.0 Immature Gran # (Auto) 0.09 H Absolute Nucleated RBC 0.00 Immature Gran % 1 H Nucleated RBC % 0 Sodium 138 Potassium 4.4 Chloride 99 Carbon Dioxide 30.8 Anion Gap 8 BUN 35 H Creatinine 1.3 Estim Creat Clear Calc 28.5 L eGFR 41 L BUN/Creatinine Ratio 27 H Glucose 100 D Calculated Osmolality 283 Calcium 10.1 Corrected Calcium 10.5 H Phosphorus 2.8 Magnesium 1.8 Total Bilirubin 0.5 AST 23 ALT 11 Alkaline Phosphatase 52 Total Protein 5.7 Albumin 3.5 Globulin 2.2 L Albumin/Globulin Ratio 1.6 Quality Measures Quality Measures VTE prophylaxis Advance care planning discussed with:: other Assessment & Plan Assessment Current Active Medications: Generic Name Dose Route Start Last Admin Trade Name Freq PRN Reason Stop Dose Admin Acetaminophen 650 mg 05/23/24 16:19 Acetaminophen Supp 650 Mg Supp CO 06/22/24 16:18 Q6HR PRN Fever > 100.4 Protocol Acetaminophen 650 mg 05/25/24 14:28 05/26/24 20:33 Acetaminophen 325 Mg Tablet PO 06/24/24 14:27 650 mg Q6HR PRN Administration Fever >100.4 or pain Albuterol/Ipratropium 3 ml 05/23/24 18:57 Albuterol/Ipratropium (Duoneb) Rt [place] 3 Ml Nebu INH 06/22/24 18:59 Q4HRRT PRN wheezing Dextrose 25 ml 05/23/24 18:07 Dextrose 50%-Water Inj 50 Ml Syringe IV 06/22/24 18:06 Q15MIN PRN BG 50-70 responsive npo pt Dextrose 50 ml 05/23/24 18:07 Dextrose 50%-Water Inj 50 Ml Syringe IV 06/22/24 18:06 Q15MIN PRN BG <50 OR BG <70 & pt unresponsive Glucagon 1 mg 05/23/24 18:07 Glucagon Inj 1 Mg Vial IM Q15MIN PRN BG <70, and no IV access Ferric Sodium Gluconate 125 mg 110 mls @ 110 mls/hr 05/25/24 14:20 05/28/24 08:56 / Sodium Chloride IV 110 mls/hr QDAY ROCK Administration Magnesium Sulfate 2 gm in 50 mls @ 25 mls/hr 05/29/24 08:26 Magnesium Sulfate Ivpb IV 05/29/24 10:25 X1 ONE Insulin Glargine 10 unit 05/26/24 21:00 05/28/24 20:30 Insulin Glargine (Lantus) 5 Unit/0.05 Ml (Per 5 Units) SC 06/25/24 20:59 10 unit HS ROCK Administration Insulin Human Lispro 0 unit 05/26/24 13:46 05/29/24 08:03 Insulin Lispro (Admelog) 1 Unit/0.01 Ml Unit SC 06/25/24 07:29 Not Given ACHS ROCK Protocol Metoclopramide HCl 5 mg 05/24/24 12:00 05/29/24 05:30 Metoclopramide Inj 5 Mg/Ml Vial 2 Ml IVP 06/23/24 11:59 5 mg Q6HR ROCK Administration Protocol Ondansetron HCl 4 mg 05/23/24 16:19 Ondansetron Inj 2 Mg/Ml Inj 2 Ml IV 06/22/24 16:18 Q6H PRN NAUSEA OR VOMITING Protocol Pantoprazole Sodium 40 mg 05/24/24 21:00 05/29/24 08:06 Pantoprazole Inj 40 Mg Vial IVP 06/23/24 20:59 40 mg BID ROCK Administration Sucralfate 1 gm 05/28/24 11:30 05/29/24 08:06 Sucralfate Susp 1 Gm/10 Ml Udc PO 06/27/24 11:29 1 gm ACHS ROCK Administration Plan Glenis Bustamante 83-y/o female PMHx HTN, A-fib on Eliquis, T2DM, COPD admitted on 05/23 from SNF for GI bleed (melena, hematemesis) and sepsis 2/2 UTI. #Upper versus lower GI bleed #Acute blood loss anemia Melena and hematemesis, FOBT positive. Endorse abdominal pain but somnolent on exam. Hemoglobin dropped from 7.9 to 6.8. On Eliquis for A-fib, currently held. Transfused 2 units PRBC, hemoglobin stable at 9.1. EGD on 05/24: 12 mm ulcer that was not bleeding ? Protonix 40 mg IV twice daily ? GI consulted, appreciate recommendations ? Monitor CBC and transfuse as needed ? Spoke to family and decided to forego colonoscopy as patient will likely not tolerate #Constipation No recorded bowel movements since admission. Received miralax, senna, dulcolax, lactulose, mineral oil enema, fleet enema, and glycerin suppository. ? Rectal exam per GI recommendations ? Possible manual disimpaction #Sepsis secondary to UTI #Urinary tract infection UA showed cloudy urine with 911 WBC, urine bacteria with endorgan damage (ELBA). Ceftriaxone (05/23-05/25) ? Blood cultures 05/23: Pending #Acute on chronic encephalopathy in setting of advanced dementia, resolved CT head: negative for bleed, masses, midline shift Passed speech swallow evaluation. #Lactic acidosis, type A in setting of blood loss, improving #Elevated anion gap Lactic acid 11, down trended to 9. 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 ? Avoid nephrotoxic agents, renally dose medications ? Strict I's and O's, PureWick catheter placed ? Follow-up a.m. labs and replete as necessary #NSTEMI type II, demand ischemia Troponin 0.054 -> 0.091 -> 0.117 -> 0.110. EKG showed chronic A-fib with RBBB, QTc 500, HR 103. ? Avoid QTc prolonging agents #History of hypertension No antihypertensives on med rec from SNF #History of A-fib ? Resumed Eliquis 2.5 mg p.o. twice daily ? Mg > 2, K > 4 #History of COPD ? As needed breathing treatments, PRN oxygen #History of T2DM ? SSI, hypoglycemia protocol Hospital management: Disposition: s/p EGD, family decided to not undergo colonoscopy, pending BM Fluids: none Diet: Peptic ulcer diet Lines: PIV DVT prophylaxis: SCDs GI prophylaxis: pantoprazole 40 mg IV BID CODE STATUS: DNR ----- Plan discussed with attending physician Dr. Loza and senior resident physician Dr. Dana Randall MD PGY-1 Internal Medicine Attending Provider Attestation/Addendum I reviewed labs, imaging, EKG, home medications and prior available records. Face to face evaluation was performed by me. I have personally examined the patient and discussed assessment and plan with the IM team. I reviewed the resident note and agree with the plan with exceptions as below. GI bleed ELBA Acute UTI Atrial fibrillation with controlled ventricular response Thrombocytopenia Severe constipation EGD showed gastric ulcer 12 mm. Continue PPI twice daily Family decided not to pursue with colonoscopy Monitor H&H Monitor kidney function: Creatinine improved. Could be at the new baseline Platelet level is stable. Monitor for bleeding and monitor platelet level Resume Eliquis at 2.5 mg twice daily in the setting of GI bleed and age/creatinine clearance Gave Fleet enema but still no bowel movement. Gave IV fluids. Ordered abdominal x-ray
[2024-05-28] MEDS: FERRIC SOD GLUC INJ 125 MG in SODIUM CHLORIDE 0.9% 100 ML 110 MG IV (08:56)
[2024-05-28] MEDS: LACTULOSE SYRUP 20 GM/30 ML UDC PO (10:38)
[2024-05-28] MEDS: POLYETHYLENE GLYCOL 17 GM PACKET PO (10:39)
--- NOTE | 2024-05-28 10:49 | PC.SS ---
Addendum entered by MISHA Burt 05/28/24 15:11: 1510 Checked with bed side nurse Kaylee and no BM as of yet. Addendum entered by MISHA Burt 05/28/24 15:10: Rounding note: patient continues pending BM. 0310 Checked with bed side nurse Kaylee and no BM as of yet. Addendum entered by MISHA Burt 05/28/24 10:52: Updated Jessi at [facility]. Original Note: SS follow up: patient is pending a bowel movement before d/c to SNF.
[2024-05-28] MEDS: SUCRALFATE SUSP 1 GM/10 ML UDC PO ×3 (11:36→20:29)
[2024-05-28] MEDS: RINGERS LACTATED 1000 ML 500 ML 999 ML IV (11:42)
--- NOTE | 2024-05-28 13:03 | PD.IMPROG ---
Documentation for date of: 05/28/24 Subjective Subjective Interval history: Patient was undergoing discharge planning but she has not had a bowel movement Case discussed with internal medicine team advised rectal examination Disimpaction disimpact the stool otherwise after giving GoLytely to flush the stool out before she goes home Exam Vital Signs Temp Pulse Resp BP Pulse Ox O2 Del Method O2 Flow Rate 97.1 F 72 20 158/78 H 96 Room Air 1 05/28/24 12:00 05/28/24 12:00 05/28/24 12:00 05/28/24 12:00 05/28/24 12:00 05/28/24 12:00 05/26/24 04:00 Objective Labs 05/28/24 05:36 05/28/24 05:36 Labs: Laboratory Results - last 24 hr 05/28/24 05:36 WBC 7.7 RBC 2.87 L Hgb 9.0 L Hct 27.9 L MCV 97 MCH 31.4 MCHC 32.3 RDW Std Deviation 60.6 H Plt Count 133 L Neut % (Auto) 61 Lymph % (Auto) 23 [place] % (Auto) 11 Eos % (Auto) 3 Baso % (Auto) 0 Neut # (Auto) 4.7 Lymph # (Auto) 1.8 [place] # (Auto) 0.8 Eos # (Auto) 0.3 Baso # (Auto) 0.0 Immature Gran # (Auto) 0.09 H Absolute Nucleated RBC 0.00 Immature Gran % 1 H Nucleated RBC % 0 Sodium 141 Potassium 4.4 Chloride 103 Carbon Dioxide 31.2 H Anion Gap 7 BUN 44 H Creatinine 1.3 Estim Creat Clear Calc 28.0 L eGFR 41 L BUN/Creatinine Ratio 34 H Glucose 172 H Calculated Osmolality 296 H Calcium 10.7 H Corrected Calcium 11.0 H Phosphorus 2.7 Magnesium 2.1 Total Bilirubin 0.4 AST 22 ALT 11 Alkaline Phosphatase 53 Total Protein 6.2 Albumin 3.6 Globulin 2.6 Albumin/Globulin Ratio 1.4 Impressions Impression: Stool impaction Anemia blood loss plan as under HPI Assessment & Plan A&P Narrative # Acute GI bleed with hematemesis and melena in the setting of Eliquis for atrial fibrillation Agree with blood transfusion Resuscitate the patient Let the family decide how aggressive they want to be then I will make a decision when to do an upper endoscopy or not do that at all if she is going to be a comfort care Other medical problems include # Chronic atrial fibrillation on Eliquis which is being held # Essential hypertension # Diabetes mellitus type 2 # COPD # Elevated troponin # Lactic acidosis # ELBA with dehydration Thank you for the opportunity to participate in the care of this patient Time Spent With Patient Time: Total time spent is greater than 50% in coordination of care (as documented) at patient's floor/unit and/or counseling patient:
--- NOTE | 2024-05-28 15:45 | XR_ITS ---
Examination: Abdomen AP single view Technique: AP portable supine abdomen, single view Exam date and time: May 28, 2024 1557 hours INDICATIONS: Constipation today. FINDINGS: Moderate to large amounts of air and stool throughout the colon No obstruction. No free air. Heavy vascular calcification IMPRESSION: Moderate to large amounts of air and stool throughout the colon
[2024-05-28] MEDS: GLYCERIN, ADULT 1 EA SUPP 1 EACH PR (17:49)
[2024-05-28] MEDS: INSULIN GLARGINE (Lantus) 5 UNIT/0.05 ML (PER 5 UNITS) 10 UNIT SC (20:30)
[2024-05-29] VITALS (8 sets, daily range): BP systolic 127–161; BP diastolic 65–89; PULSE 69–107; RESP 15–23; TEMP 36–36.4; O2SAT 92–97; BMI 27.6; BMI 24.7
[2024-05-29] MEDS: METOCLOPRAMIDE INJ 5 MG/ML VIAL 2 ML IVP (05:30)
[2024-05-29 06:12] LABS: Basophils % (Auto) 0 % (0-2.5); Eosinophils # (Auto) 0.2 Thou/mm3 (0.0-0.5); Eosinophils % (Auto) 2 % (0-10); Hematocrit 24.3 % (36.0-46.0); Immature Granulocytes % (Auto) 1 % (0-0); Immature Granulocytes Auto 0.09 Thou/mm3 (0.00-0.00); Lymphocytes # (Auto) 1.5 Thou/mm3 (1.0-4.8); Lymphocytes % (Auto) 19 % (10-50); Mean Corpuscular HGB Conc 32.9 g/dl (31.0-37.0); Mean Corpuscular Hemoglobin 31.6 pg (25.0-35.0); Mean Corpuscular Volume 96 fL (80-100); Monocytes # (Auto) 0.8 Thou/mm3 (0.0-0.8); Monocytes % (Auto) 11 % (0-12); Neutrophils # (Auto) 5.2 Thou/mm3 (1.8-7.7); Neutrophils % (Auto) 67 % (37-80); Nucleated Red Blood Cell % 0 /100 WBC (0); Platelet Count 128 Thou/mm3 (140-440); RDW Standard Deviation 58.9 fL (36.4-46.3); Red Blood Count 2.53 Miln/mm3 (4.00-5.20); White Blood Count 7.8 Thou/mm3 (3.6-11.0)
[2024-05-29 06:43] LABS: Alanine Aminotransferase 11 U/L (10-49); Albumin, Serum 3.5 gm/dL (3.4-4.8); Albumin/Globulin Ratio 1.6 (1.2-2.2); Alkaline Phosphatase 52 U/L (46-116); Anion Gap 8 (7-16); Aspartate Amino Transferase 23 U/L (0-34); BUN/Creatinine Ratio 27 Ratio (12-20); Bilirubin,Total 0.5 mg/dL (0.3-1.2); Blood Urea Nitrogen 35 mg/dL (9-23); Calcium 10.1 mg/dL (8.3-10.6); Calcium (Corrected) 10.5 mg/dL (8.5-10.1); Carbon Dioxide 30.8 mMol/L (20.0-31.0); Chloride 99 mMol/L (98-107); Creatinine (Component) 1.3 mg/dL (0.6-1.3); Estimated Creatinine Clearance 28.5 mL/min (>60); Globulin 2.2 gm/dL (2.3-3.5); Glucose 100 mg/dL (74-106); Magnesium 1.8 mg/dL (1.6-2.6); Osmolality,Calculated 283 (275-295); Phosphorous 2.8 mg/dL (2.4-5.1); Potassium 4.4 mMol/L (3.4-5.1); Sodium 138 mMol/L (136-145); Total Protein 5.7 gm/dL (5.7-8.2); eGFR 41 See Note
[2024-05-29] MEDS: PANTOPRAZOLE INJ 40 MG VIAL IVP ×2 (08:06→21:02)
[2024-05-29] MEDS: SUCRALFATE SUSP 1 GM/10 ML UDC PO ×3 (08:06→21:02)
[2024-05-29] MEDS: Magnesium Sulfate 2 GM Ivpb 2 GM/50 ML BAG IV (08:54)
--- NOTE | 2024-05-29 09:35 | PD.IMPROG ---
Documentation for date of: 05/29/24 Subjective Subjective Interval history: patient evaluated which is why she is having bowel movement is a major issue KUB done on 05/28/2024 showed stool impaction Patient had a manual disimpaction She did not have any more bowel movement since then Will get a repeat KUB and see where we are she may need more GoLytely via the NGT to flush the stool out Exam Vital Signs Temp Pulse Resp BP Pulse Ox O2 Del Method O2 Flow Rate 97.1 F 75 18 142/82 H 97 Room Air 1 05/29/24 08:00 05/29/24 08:00 05/29/24 08:00 05/29/24 08:00 05/29/24 08:00 05/29/24 08:00 05/28/24 16:00 Objective Labs 05/30/24 07:17 05/30/24 07:17 Labs: Laboratory Results - last 24 hr 05/29/24 05:43 WBC 7.8 RBC 2.53 L Hgb 8.0 L Hct 24.3 L MCV 96 MCH 31.6 MCHC 32.9 RDW Std Deviation 58.9 H Plt Count 128 L Neut % (Auto) 67 Lymph % (Auto) 19 [place] % (Auto) 11 Eos % (Auto) 2 Baso % (Auto) 0 Neut # (Auto) 5.2 Lymph # (Auto) 1.5 [place] # (Auto) 0.8 Eos # (Auto) 0.2 Baso # (Auto) 0.0 Immature Gran # (Auto) 0.09 H Absolute Nucleated RBC 0.00 Immature Gran % 1 H Nucleated RBC % 0 Sodium 138 Potassium 4.4 Chloride 99 Carbon Dioxide 30.8 Anion Gap 8 BUN 35 H Creatinine 1.3 Estim Creat Clear Calc 28.5 L eGFR 41 L BUN/Creatinine Ratio 27 H Glucose 100 D Calculated Osmolality 283 Calcium 10.1 Corrected Calcium 10.5 H Phosphorus 2.8 Magnesium 1.8 Total Bilirubin 0.5 AST 23 ALT 11 Alkaline Phosphatase 52 Total Protein 5.7 Albumin 3.5 Globulin 2.2 L Albumin/Globulin Ratio 1.6 Impressions Impression: # Stool impaction Continue with present treatment If no improvement additional GoLytely Assessment & Plan A&P Narrative # Acute GI bleed with hematemesis and melena in the setting of Eliquis for atrial fibrillation Agree with blood transfusion Resuscitate the patient Let the family decide how aggressive they want to be then I will make a decision when to do an upper endoscopy or not do that at all if she is going to be a comfort care Other medical problems include # Chronic atrial fibrillation on Eliquis which is being held # Essential hypertension # Diabetes mellitus type 2 # COPD # Elevated troponin # Lactic acidosis # ELBA with dehydration Thank you for the opportunity to participate in the care of this patient Time Spent With Patient Time: Total time spent is greater than 50% in coordination of care (as documented) at patient's floor/unit and/or counseling patient:
--- NOTE | 2024-05-29 15:45 | PC.SS ---
SS follow up note; Patient has not had bowl movement as of yet.
--- NOTE | 2024-05-29 17:06 | ESPR_ITS ---
<Statement entered by Daniele Cortez MD - 05/29/24 18:37> Patient was seen and examined no acute event was reported. Patient is alert and oriented to timex3. manual disimpaction was unsuccessful before we started GoLytelyx 500 mL and will continue with full liquid diet and give some IV fluids for the concern of low blood pressure. Anticipating discharge tomorrow. All labs and orders were reviewed. I saw and examined the patient, and I agree with current management stated by Dr Prakash MD,PGY1. Plan of care was discussed with the attending physician and resident physician. Disclaimer: Despite multiple revisions, due to the dictation software being used, the document bellow may not be free of grammatical errors including phonetic/typographic errors. However, this does not deter from our commitment to providing health care in the patient's best interest in mind. Dr. Isidoro MD, PGY 2 Documentation for date of: 05/29/24 Subjective Subjective Interval history: No acute overnight events noted. Patient seen and examined at bedside, did not have any complaints. Continues to be much more alert and energetic today per family. Denies abdominal pain, nausea, vomiting, fever, chills. Per family, she does not have regular bowel movements at her facility. Spoke to GI, recommends rectal exam and possible manual disimpaction prior to going back to SNF. Attempted manual disimpaction today without significant stool removal as was seen on abdominal XR. Will start golytely with maximum of 5 BMs. Exam Vital Signs Temp Pulse Resp BP Pulse Ox O2 Del Method O2 Flow Rate 97.1 F 69 18 127/68 96 Room Air 1 05/29/24 12:05/29/24 12:05/29/24 12:05/29/24 12:05/29/24 12:05/29/24 12:05/28/24 16:00 Narrative Exam General: Alert and oriented to self/birthdate/town, no acute distress, able to speak in 3-4 word sentences HEENT: Oral cavity with dried blood noted, NC/AT, bilateral sclera anicteric Cardiovascular: regular rate and rhythm, S1/S2 present, no murmurs appreciated Pulmonary: clear to auscultation bilaterally, no rales/rhonchi/wheezes Abdominal: Epigastric tenderness, soft, non-distended, normal bowel sounds present Musculoskeletal: Right lower extremity swollen ankle, bruising and third/fourth/fifth dorsal aspect of toes noted Skin: Chronic venous stasis Neuro: CN II-XII intact, no focal deficits Objective Labs 05/30/24 07:17 05/30/24 07:17 Labs: Laboratory Results - last 24 hr 05/29/24 05:43 WBC 7.8 RBC 2.53 L Hgb 8.0 L Hct 24.3 L MCV 96 MCH 31.6 MCHC 32.9 RDW Std Deviation 58.9 H Plt Count 128 L Neut % (Auto) 67 Lymph % (Auto) 19 [place] % (Auto) 11 Eos % (Auto) 2 Baso % (Auto) 0 Neut # (Auto) 5.2 Lymph # (Auto) 1.5 [place] # (Auto) 0.8 Eos # (Auto) 0.2 Baso # (Auto) 0.0 Immature Gran # (Auto) 0.09 H Absolute Nucleated RBC 0.00 Immature Gran % 1 H Nucleated RBC % 0 Sodium 138 Potassium 4.4 Chloride 99 Carbon Dioxide 30.8 Anion Gap 8 BUN 35 H Creatinine 1.3 Estim Creat Clear Calc 28.5 L eGFR 41 L BUN/Creatinine Ratio 27 H Glucose 100 D Calculated Osmolality 283 Calcium 10.1 Corrected Calcium 10.5 H Phosphorus 2.8 Magnesium 1.8 Total Bilirubin 0.5 AST 23 ALT 11 Alkaline Phosphatase 52 Total Protein 5.7 Albumin 3.5 Globulin 2.2 L Albumin/Globulin Ratio 1.6 Quality Measures Quality Measures VTE prophylaxis Advance care planning discussed with:: patient and child Assessment & Plan Assessment Current Active Medications: Generic Name Dose Route Start Last Admin Trade Name Carlosq PRN Reason Stop Dose Admin Acetaminophen 650 mg 05/23/24 16:19 Acetaminophen Supp 650 Mg Supp [place] 06/22/24 16:18 Q6HR PRN Fever > 100.4 Protocol Acetaminophen 650 mg 05/25/24 14:28 05/26/24 20:33 Acetaminophen 325 Mg Tablet PO 06/24/24 14:27 650 mg Q6HR PRN Administration Fever >100.4 or pain Albuterol/Ipratropium 3 ml 05/23/24 18:57 Albuterol/Ipratropium (Duoneb) Rt Marina 3 Ml Nebu INH 06/22/24 18:59 Q4HRRT PRN wheezing Dextrose 25 ml 05/23/24 18:07 Dextrose 50%-Water Inj 50 Ml Syringe IV 06/22/24 18:06 Q15MIN PRN BG 50-70 responsive npo pt Dextrose 50 ml 05/23/24 18:07 Dextrose 50%-Water Inj 50 Ml Syringe IV 06/22/24 18:06 Q15MIN PRN BG <50 OR BG <70 & pt unresponsive Glucagon 1 mg 05/23/24 18:07 Glucagon Inj 1 Mg Vial IM Q15MIN PRN BG <70, and no IV access Ferric Sodium Gluconate 125 mg 110 mls @ 110 mls/hr 05/25/24 14:20 05/28/24 08:56 / Sodium Chloride IV 110 mls/hr QDAY ROCK Administration Insulin Glargine 10 unit 05/26/24 21:00 05/28/24 20:30 Insulin Glargine (Lantus) 5 Unit/0.05 Ml (Per 5 Units) SC 06/25/24 20:59 10 unit HS ROCK Administration Insulin Human Lispro 0 unit 05/26/24 13:46 05/29/24 12:01 Insulin Lispro (Admelog) 1 Unit/0.01 Ml Unit SC 06/25/24 07:29 Not Given ACHS ROCK Protocol Metoclopramide HCl 5 mg 05/24/24 12:00 05/29/24 12:07 Metoclopramide Inj 5 Mg/Ml Vial 2 Ml IVP 06/23/24 11:59 Not Given Q6HR ROCK Protocol Ondansetron HCl 4 mg 05/23/24 16:19 Ondansetron Inj 2 Mg/Ml Inj 2 Ml IV 06/22/24 16:18 Q6H PRN NAUSEA OR VOMITING Protocol Pantoprazole Sodium 40 mg 05/24/24 21:00 05/29/24 08:06 Pantoprazole Inj 40 Mg Vial IVP 06/23/24 20:59 40 mg BID ROCK Administration Sucralfate 1 gm 05/28/24 11:30 05/29/24 12:06 Sucralfate Susp 1 Gm/10 Ml Udc PO 06/27/24 11:29 1 gm ACHS ROCK Administration Plan Glenis Hahnsa 83-y/o female PMHx HTN, A-fib on Eliquis, T2DM, COPD admitted on 05/23 from SNF for GI bleed (melena, hematemesis) and sepsis 2/2 UTI. #Upper versus lower GI bleed #Acute blood loss anemia Melena and hematemesis, FOBT positive. Endorse abdominal pain but somnolent on exam. Hemoglobin dropped from 7.9 to 6.8. On Eliquis for A-fib, currently held. Transfused 2 units PRBC, hemoglobin stable at 9.1. EGD on 05/24: 12 mm ulcer that was not bleeding ? Protonix 40 mg IV twice daily ? GI consulted, appreciate recommendations ? Monitor CBC and transfuse as needed ? Spoke to family and decided to forego colonoscopy as patient will likely not tolerate #Constipation No recorded bowel movements since admission. Received miralax, senna, dulcolax, lactulose, mineral oil enema, fleet enema, and glycerin suppository. Manual disimpaction with removal of 5 pellets of dark, formed stools. ? Golytely as tolerated with maximum of 5 BMs for the night ? Full liquid diet to prevent additional stool burden and on low rate maintenance IVF #Sepsis secondary to UTI #Urinary tract infection UA showed cloudy urine with 911 WBC, urine bacteria with endorgan damage (ELBA). Ceftriaxone (05/23-05/25) ? Blood cultures 05/23: negative ? Urine culture 05/27: negative #Acute on chronic encephalopathy in setting of advanced dementia, resolved CT head: negative for bleed, masses, midline shift Passed speech swallow evaluation. #Lactic acidosis, type A in setting of blood loss, improving #Elevated anion gap Lactic acid 11, down trended to 9. 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 Has continued to downtrend and currently at 35. Hypercalcemia likely due to prolonged immobilization as she is not on any diuretics or vitamin D/calcium supplements. ? Avoid nephrotoxic agents, renally dose medications ? Strict I's and O's, PureWick catheter placed ? Follow-up a.m. labs and replete as necessary #NSTEMI type II, demand ischemia Troponin 0.054 -> 0.091 -> 0.117 -> 0.110. EKG showed chronic A-fib with RBBB, QTc 500, HR 103. ? Avoid QTc prolonging agents #History of hypertension No antihypertensives on med rec from SNF #History of A-fib ? Resumed Eliquis 2.5 mg p.o. twice daily ? Mg > 2, K > 4 #History of COPD ? As needed breathing treatments, PRN oxygen #History of T2DM ? SSI, hypoglycemia protocol Hospital management: Disposition: s/p EGD, family decided to not undergo colonoscopy, pending BM Fluids: none Diet: Peptic ulcer diet Lines: PIV DVT prophylaxis: SCDs GI prophylaxis: pantoprazole 40 mg IV BID CODE STATUS: DNR ----- Plan discussed with attending physician Dr. Loza and senior resident physician Dr. Isidoro Randall MD PGY-1 Internal Medicine Attending Provider Attestation/Addendum I reviewed labs, imaging, EKG, home medications and prior available records. Face to face evaluation was performed by me. I have personally examined the patient and discussed assessment and plan with the IM team. I reviewed the resident note and agree with the plan with exceptions as below. GI bleed ELBA Acute UTI Atrial fibrillation with controlled ventricular response Thrombocytopenia Severe constipation EGD showed gastric ulcer 12 mm. Continue PPI twice daily Family decided not to pursue with colonoscopy Monitor H&H Monitor kidney function: Creatinine improved. Could be at the new baseline Platelet level is stable. Monitor for bleeding and monitor platelet level Resume Eliquis at 2.5 mg twice daily in the setting of GI bleed and age/creatinine clearance She has severe constipation. Ordered abdominal x-ray that showed significant stool amount. Status post manual disimpaction on 05/29. Gave oral enema
[2024-05-29] MEDS: NA SU/NAHCO3/KC/PEG (Golytely) 4,000 ML BTL 1000 ML PO (18:46)
[2024-05-29] MEDS: SODIUM CHLORIDE 0.9% 1000 ML 1,000 ML 50 ML IV (18:46)
[2024-05-29] MEDS: INSULIN GLARGINE (Lantus) 5 UNIT/0.05 ML (PER 5 UNITS) 10 UNIT SC (21:03)
[2024-05-29] MEDS: INSULIN LISPRO (AdmeLOG) 1 UNIT/0.01 ML UNIT SC (21:03)
[2024-05-30] VITALS (8 sets, daily range): BP systolic 131–165; BP diastolic 63–108; PULSE 67–92; RESP 17–19; TEMP 36.2–36.9; O2SAT 93–100; BMI 27.1
[2024-05-30] MEDS: METOCLOPRAMIDE INJ 5 MG/ML VIAL 2 ML IVP ×3 (06:05→17:32)
[2024-05-30 07:39] LABS: Basophils % (Auto) 0 % (0-2.5); Eosinophils # (Auto) 0.1 Thou/mm3 (0.0-0.5); Eosinophils % (Auto) 1 % (0-10); Hematocrit 23.8 % (36.0-46.0); Immature Granulocytes % (Auto) 1 % (0-0); Immature Granulocytes Auto 0.05 Thou/mm3 (0.00-0.00); Lymphocytes % (Auto) 13 % (10-50); Mean Corpuscular HGB Conc 32.8 g/dl (31.0-37.0); Mean Corpuscular Hemoglobin 31.7 pg (25.0-35.0); Mean Corpuscular Volume 97 fL (80-100); Monocytes % (Auto) 13 % (0-12); Neutrophils # (Auto) 5.8 Thou/mm3 (1.8-7.7); Neutrophils % (Auto) 72 % (37-80); Nucleated Red Blood Cell % 0 /100 WBC (0); Platelet Count 133 Thou/mm3 (140-440); RDW Standard Deviation 59.9 fL (36.4-46.3); Red Blood Count 2.46 Miln/mm3 (4.00-5.20)
[2024-05-30 07:47] LABS: Hemoglobin 7.8 g/dL (12.0-16.0)
[2024-05-30 07:58] LABS: Alanine Aminotransferase 11 U/L (10-49); Albumin, Serum 3.4 gm/dL (3.4-4.8); Albumin/Globulin Ratio 1.5 (1.2-2.2); Alkaline Phosphatase 57 U/L (46-116); Anion Gap 8 (7-16); Aspartate Amino Transferase 28 U/L (0-34); BUN/Creatinine Ratio 27 Ratio (12-20); Bilirubin,Total 0.8 mg/dL (0.3-1.2); Blood Urea Nitrogen 32 mg/dL (9-23); Calcium 10.2 mg/dL (8.3-10.6); Calcium (Corrected) 10.7 mg/dL (8.5-10.1); Carbon Dioxide 30.8 mMol/L (20.0-31.0); Chloride 103 mMol/L (98-107); Creatinine (Component) 1.2 mg/dL (0.6-1.3); Estimated Creatinine Clearance 30.6 mL/min (>60); Globulin 2.2 gm/dL (2.3-3.5); Glucose 117 mg/dL (74-106); Magnesium 2.1 mg/dL (1.6-2.6); Osmolality,Calculated 291 (275-295); Potassium 4.8 mMol/L (3.4-5.1); Sodium 142 mMol/L (136-145); Total Protein 5.6 gm/dL (5.7-8.2); eGFR 45 See Note
[2024-05-30] MEDS: SUCRALFATE SUSP 1 GM/10 ML UDC PO ×4 (08:00→20:23)
[2024-05-30] MEDS: PANTOPRAZOLE INJ 40 MG VIAL IVP ×2 (08:00→20:23)
--- NOTE | 2024-05-30 11:36 | PD.RESDS ---
Planned Discharge Date 05/30/24 DS: Providers Provider Date of admission: 05/23/24 16:35 Primary care physician: Physician No Primary/Family Admitting Provider: Jacky Pat DO Attending Provider on Admission: Nate Loza MD Consults: 05/23/24 13:44 Consult to Gastroenterology Stat Comment: GIB Consulting Provider: Moe Knight 05/23/24 18:07 Referral Speech Therapy Routine Comment: 05/25/24 18:20 Referral Wound Care Routine Comment: DTI to Right foot and L great toe Attending Provider on DC: Billy Matos MD Discharging Provider: Billy Matos MD Hospital Course Hospital Course Hospital course: No acute overnight events noted. Patient seen and examined at bedside, did not have any complaints. Continues to be much more alert and energetic today per family. Denies abdominal pain, nausea, vomiting, fever, chills. Per family, she does not have regular bowel movements at her facility. Spoke to GI, recommends rectal exam and possible manual disimpaction prior to going back to SNF. Attempted manual disimpaction today without significant stool removal as was seen on abdominal XR. Will start golytely with maximum of 5 BMs. Time Spent with Patient Time attestation: Total time spent providing and/or coordinating discharge services: Exam Vital Signs Temp Pulse Resp BP Pulse Ox O2 Del Method O2 Flow Rate 97.2 F 81 18 165/108 H 95 Room Air 1 05/30/24 08:00 05/30/24 08:06 05/30/24 08:06 05/30/24 08:00 05/30/24 08:06 05/30/24 08:00 05/29/24 16:00 Discharge Plan Plan Patient Disposition: Xfer [facility]illed [facility] Fac (SNF) Patient condition on transfer: Stable Care Plan Goals: - Restart taking eliquis 2.5 mg twice per day for stroke prevention - Be cautious for any signs of bleeding (red vomit, dark stools, blood in stools, dark/red urine) - Start taking ferrous sulfate 325 mg orally every other day - Start pantoprazole 40 mg orally twice per day - Follow-up with your PCP within 1 week of discharge - Continue all other home medications as prescribed - Return to the ED if symptoms worsen or recur Prescriptions/Referrals Prescriptions/Med Rec: New pantoprazole 40 mg tablet,delayed release (DR/EC) 40 mg PO BID 30 Days Qty: 60 0RF ferrous sulfate 325 mg (65 mg iron) tablet 325 mg PO Q OTHER DAY Qty: 30 0RF Continued insulin glargine [Lantus U-100 Insulin] 100 U/ML solution 18 unit Sub-Q QAM Qty: 0 Rx Instructions: Hold if BS<110. nitroglycerin [Nitrostat] 0.4 MG tablet, sublingual 0.4 mg SL PRN PRN (Reason: Chest Pain) Qty: 0 Rx Instructions: x15min prn. Culturelle 1 CAP capsule 1 cap PO QDAY Qty: 0 digoxin 125 MCG tablet 125 mcg PO UD Qty: 0 Rx Instructions: sunday thru sunday only. hydrocodone-acetaminophen 7.5-300 mg Tablet 1 tab PO Q6H PRN (Reason: Pain) Qty: 0 acetaminophen [Tylenol] 325 mg Tablet 650 mg PO Q6H PRN (Reason: pain or fever) ferrous sulfate 325 mg (65 mg iron) Tablet 325 mg PO BID insulin lispro [Humalog U-100 Insulin] 100 unit/mL Solution 10 unit subcut USEASDIRECTD Rx Instructions: Before lunch and dinner, hold for blood sugar<100. trolamine salicylate [Aspercreme] 10 % Cream 1 applic TOPICAL Q4H PRN (Reason: knee pain) cranberry extract 425 mg Capsule 425 mg PO QDAY magnesium hydroxide [Milk of Magnesia] 400 mg/5 mL Suspension 30 ml PO Q72H PRN (Reason: Constipation) metformin 1,000 mg Tablet 1,000 mg PO BID Fleet Enema 19-7 gram/118 mL Enema 118 ml [place] Q72H PRN (Reason: Constipation) docusate sodium 250 mg Capsule 250 mg PO BID Saline Nasal Mist 0.65 % Aerosol,[place] 2 spray INTRANASAL BID verapamil 120 mg Tablet Extended Release 240 mg PO QDAY Qty: 60 0RF Eliquis 2.5 mg tablet 2.5 mg PO BID Qty: 30 0RF No Action verapamil 240 mg tablet extended release 240 mg PO QDAY Referrals: No Primary/Family,Physician [Primary Care Provider] - Patient/Caregiver Discharge Instructions Print Language: Irish Stand Alone Forms: Natasha Award Info., Patient Portal Info Letter Discharge Order Discharge Orders: Discharge (Routine); Ordered 05/30/24 Ordered By: Billy Matos
[2024-05-30] MEDS: INSULIN LISPRO (AdmeLOG) 1 UNIT/0.01 ML UNIT SC ×3 (12:07→21:26)
--- NOTE | 2024-05-30 12:26 | PC.SS ---
SS set up transportation with [facility] SS will update patient's nurse and patient. SS also contacted Mishel from [facility] and reported it was okay for patient to return.
--- NOTE | 2024-05-30 12:30 | CHAP ---
Spiritual Care Volunteer prayed silently for them. (Volunteer was in the hospital from 09:15-12:30).
--- NOTE | 2024-05-30 14:19 | PD.RESPRO ---
Documentation for date of: 05/30/24 Subjective Subjective Interval history: Patient seen and examined at bedside this morning. No acute overnight events. She had manual disimpaction done on 05/29 without a BM afterwards. Multiple agents tried including GoLytely, lactulose. Will try water enema as well. At bedside, patient daughter states she has not slept properly over the last 1 or 2 days. She is AO x 1 and appears somewhat lethargic but arousable. Exam Vital Signs Temp Pulse Resp BP Pulse Ox O2 Del Method O2 Flow Rate 97.4 F 80 17 134/63 H 96 Room Air 1 05/30/24 12:00 05/30/24 12:00 05/30/24 12:00 05/30/24 12:00 05/30/24 12:05/30/24 12:05/29/24 16:00 Narrative Exam General: Alert and oriented to self, lethargic but arousable to voice HEENT: NC/AT, bilateral sclera anicteric, no LAD Cardiovascular: regular rate and rhythm, S1/S2 present, no murmurs appreciated Pulmonary: clear to auscultation bilaterally, no rales/rhonchi/wheezes Abdominal: Mild TTP in epigastrium, soft, non-distended, normal bowel sounds present Musculoskeletal: Right lower extremity swollen ankle, bruising and third/fourth/fifth dorsal aspect of toes noted Skin: Chronic venous stasis Neuro: CN II-XII intact, no focal deficits Objective Labs 05/31/24 05:30 05/31/24 05:30 Labs: Laboratory Results - last 24 hr 05/29/24 05/30/24 05:43 07:17 WBC 8.0 RBC 2.46 L Hgb 7.8 L Hct 23.8 L MCV 97 MCH 31.7 MCHC 32.8 RDW Std Deviation 59.9 H Plt Count 133 L Neut % (Auto) 72 Lymph % (Auto) 13 [place] % (Auto) 13 H Eos % (Auto) 1 Baso % (Auto) 0 Neut # (Auto) 5.8 Lymph # (Auto) 1.0 [place] # (Auto) 1.0 H Eos # (Auto) 0.1 Baso # (Auto) 0.0 Immature Gran # (Auto) 0.05 H Absolute Nucleated RBC 0.00 Immature Gran % 1 H Nucleated RBC % 0 Sodium 142 Potassium 4.8 Chloride 103 Carbon Dioxide 30.8 Anion Gap 8 BUN 32 H Creatinine 1.2 Estim Creat Clear Calc 30.6 L eGFR 45 L BUN/Creatinine Ratio 27 H Glucose 117 H Calculated Osmolality 291 Calcium 10.2 Corrected Calcium 10.7 H Phosphorus 3.0 Magnesium 2.1 Total Bilirubin 0.8 AST 28 ALT 11 Alkaline Phosphatase 57 Total Protein 5.6 L Albumin 3.4 Globulin 2.2 L Albumin/Globulin Ratio 1.5 Procalcitonin Cancelled Quality Measures Quality Measures VTE prophylaxis Advance care planning discussed with:: patient and child Assessment & Plan Assessment Current Active Medications: Generic Name Dose Route Start Last Admin Trade Name Freq PRN Reason Stop Dose Admin Acetaminophen 650 mg 05/23/24 16:19 Acetaminophen Supp 650 Mg Supp [place] 06/22/24 16:18 Q6HR PRN Fever > 100.4 Protocol Acetaminophen 650 mg 05/25/24 14:28 05/26/24 20:33 Acetaminophen 325 Mg Tablet PO 06/24/24 14:27 650 mg Q6HR PRN Administration Fever >100.4 or pain Albuterol/Ipratropium 3 ml 05/23/24 18:57 Albuterol/Ipratropium (Duoneb) Rt Marina 3 Ml Nebu INH 06/22/24 18:59 Q4HRRT PRN wheezing Dextrose 25 ml 05/23/24 18:07 Dextrose 50%-Water Inj 50 Ml Syringe IV 06/22/24 18:06 Q15MIN PRN BG 50-70 responsive npo pt Dextrose 50 ml 05/23/24 18:07 Dextrose 50%-Water Inj 50 Ml Syringe IV 06/22/24 18:06 Q15MIN PRN BG <50 OR BG <70 & pt unresponsive Glucagon 1 mg 05/23/24 18:07 Glucagon Inj 1 Mg Vial IM Q15MIN PRN BG <70, and no IV access Ferric Sodium Gluconate 125 mg 110 mls @ 110 mls/hr 05/25/24 14:20 05/28/24 08:56 / Sodium Chloride IV 110 mls/hr QDAY ROCK Administration Insulin Glargine 10 unit 05/26/24 21:00 05/29/24 21:03 Insulin Glargine (Lantus) 5 Unit/0.05 Ml (Per 5 Units) SC 06/25/24 20:59 10 unit HS ROCK Administration Insulin Human Lispro 0 unit 03/24/25 13:46 05/30/24 12:07 Insulin Lispro (Admelog) 1 Unit/0.01 Ml Unit SC 06/25/24 07:29 4 unit ACHS ROCK Administration Protocol Metoclopramide HCl 5 mg 05/24/24 12:00 05/30/24 12:07 Metoclopramide Inj 5 Mg/Ml Vial 2 Ml IVP 06/23/24 11:59 5 mg Q6HR ROCK Administration Protocol Ondansetron HCl 4 mg 05/23/24 16:19 Ondansetron Inj 2 Mg/Ml Inj 2 Ml IV 06/22/24 16:18 Q6H PRN NAUSEA OR VOMITING Protocol Pantoprazole Sodium 40 mg 05/24/24 21:00 05/30/24 08:00 Pantoprazole Inj 40 Mg Vial IVP 06/23/24 20:59 40 mg BID ROCK Administration Sucralfate 1 gm 05/28/24 11:30 05/30/24 12:07 Sucralfate Susp 1 Gm/10 Ml Udc PO 06/27/24 11:29 1 gm ACHS ROCK Administration Plan Glenis Bustamante 83-y/o female PMHx HTN, A-fib on Eliquis, T2DM, COPD admitted on 05/23 from SNF for GI bleed (melena, hematemesis) and sepsis 2/2 UTI. #Acute encephalopathy Likely hospital-acquired delerium as patient has not slept well over last 2 days, per daughter at bedside. At baseline, she is AAOx3 Delerium precautions, frequent reorientation Will give melatonin and advise director of global sales team to allow patient to rest. Will re-evaluate in morning #Constipation, improving No recorded bowel movements since admission. => patient is in wheelchair at baseline Received miralax, senna, dulcolax, lactulose, mineral oil enema, fleet enema, and glycerin suppository. Manual disimpaction with removal of 5 pellets of dark, formed stools. - GoLytely and lactulose (05/29) did not stimulate BM - Ordered water enema with BM noted per RN #Upper versus lower GI bleed #Acute blood loss anemia Melena and hematemesis, FOBT positive; required 2u pRBC. Endorse abdominal pain but somnolent on exam. Hemoglobin dropped from 7.9 to 6.8. On Eliquis for A-fib, currently held. EGD on 05/24: 12 mm ulcer that was not bleeding ? Protonix 40 mg IV twice daily ? GI consulted, appreciate recommendations ? Monitor CBC and transfuse as needed ? Spoke to family and decided to forego colonoscopy as patient will likely not tolerate #Sepsis secondary to UTI #Urinary tract infection UA showed cloudy urine with 911 WBC, urine bacteria with endorgan damage (ELBA). Ceftriaxone (05/23-05/25) ? Blood cultures 05/23: negative ? Urine culture 05/27: negative #Lactic acidosis, type A in setting of blood loss, improving #Elevated anion gap Lactic acid 11, down trended to 9. 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 Has continued to downtrend and currently at 35. Hypercalcemia likely due to prolonged immobilization as she is not on any diuretics or vitamin D/calcium supplements. ? Avoid nephrotoxic agents, renally dose medications ? Strict I's and O's, PureWick catheter placed ? Follow-up a.m. labs and replete as necessary #NSTEMI type II, demand ischemia Troponin 0.054 -> 0.091 -> 0.117 -> 0.110. EKG showed chronic A-fib with RBBB, QTc 500, HR 103. ? Avoid QTc prolonging agents #History of hypertension No antihypertensives on med rec from SNF #History of A-fib ? Resumed Eliquis 2.5 mg p.o. twice daily ? Mg > 2, K > 4 #History of COPD ? As needed breathing treatments, PRN oxygen #History of T2DM ? SSI, hypoglycemia protocol Hospital management: Disposition: s/p EGD, family decided to not undergo colonoscopy, had BM; likely hospital-acquired delerium Fluids: none Diet: Dysphagia 3, cardiac Lines: PIV DVT prophylaxis: SCDs GI prophylaxis: pantoprazole 40 mg IV BID CODE STATUS: DNR Patient seen and care discussed with my attending Dr. Loza. Billy Matos MD PGY-3 Attending Provider Attestation/Addendum I reviewed labs, imaging, EKG, home medications and prior available records. Face to face evaluation was performed by me. I have personally examined the patient and discussed assessment and plan with the IM team. I reviewed the resident note and agree with the plan with exceptions as below. Acute encephalopathy, likely hypoactive delirium GI bleed ELBA Acute UTI Atrial fibrillation with controlled ventricular response Thrombocytopenia Severe constipation Patient was delirious. Likely from constipation and sleep deprivation. Will keep the patient until mental status improves. Management of the underlying conditions as below EGD showed gastric ulcer 12 mm. Continue PPI twice daily Family decided not to pursue with colonoscopy Monitor H&H: Stable Monitor kidney function: Creatinine improved. Could be at the new baseline Platelet level is stable. Monitor for bleeding and monitor platelet level Resume Eliquis at 2.5 mg twice daily in the setting of GI bleed and age/creatinine clearance She has severe constipation. Ordered abdominal x-ray that showed significant stool amount. Status post manual disimpaction on 05/29. Gave enema after which patient had a large bowel movement
--- NOTE | 2024-05-30 19:25 | PC.NURSE ---
Patient was supposed to get discharge back to [facility] today. Report was called and given to [facility] nurse. MD cancelled and wanted to keep her for another night for observation.
--- NOTE | 2024-05-30 19:34 | XR_ITS ---
Examination: Abdomen AP single view Technique: AP portable supine abdomen, single view Exam date and time: May 30, 20245 hours INDICATIONS: Abdominal pain and constipation beginning 3 days ago. FINDINGS: Moderate air and stool throughout the colon Heavy vascular calcification Severe osteopenia No free air Suspicious for pneumonia lipase IMPRESSION: Moderate air and stool throughout the colon No obstruction Recommend PA lateral chest to confirm pneumonia left base
--- NOTE | 2024-05-30 19:36 | PD.IMPROG ---
Documentation for date of: 05/30/24 Subjective Subjective Interval history: Stool impaction remains a major issue KUB ordered Exam Vital Signs Temp Pulse Resp BP Pulse Ox O2 Del Method O2 Flow Rate 98.0 F 80 19 131/75 H 96 Room Air 1 05/30/24 16:00 05/30/24 16:00 05/30/24 16:00 05/30/24 16:00 05/30/24 16:00 05/30/24 16:00 05/29/24 16:00 Objective Labs 05/30/24 07:17 05/30/24 07:17 Labs: Laboratory Results - last 24 hr 05/29/24 05/30/24 05:43 07:17 WBC 8.0 RBC 2.46 L Hgb 7.8 L Hct 23.8 L MCV 97 MCH 31.7 MCHC 32.8 RDW Std Deviation 59.9 H Plt Count 133 L Neut % (Auto) 72 Lymph % (Auto) 13 Barron % (Auto) 13 H Eos % (Auto) 1 Baso % (Auto) 0 Neut # (Auto) 5.8 Lymph # (Auto) 1.0 Barron # (Auto) 1.0 H Eos # (Auto) 0.1 Baso # (Auto) 0.0 Immature Gran # (Auto) 0.05 H Absolute Nucleated RBC 0.00 Immature Gran % 1 H Nucleated RBC % 0 Sodium 142 Potassium 4.8 Chloride 103 Carbon Dioxide 30.8 Anion Gap 8 BUN 32 H Creatinine 1.2 Estim Creat Clear Calc 30.6 L eGFR 45 L BUN/Creatinine Ratio 27 H Glucose 117 H Calculated Osmolality 291 Calcium 10.2 Corrected Calcium 10.7 H Phosphorus 3.0 Magnesium 2.1 Total Bilirubin 0.8 AST 28 ALT 11 Alkaline Phosphatase 57 Total Protein 5.6 L Albumin 3.4 Globulin 2.2 L Albumin/Globulin Ratio 1.5 Procalcitonin Cancelled Impressions Impression: Stool impaction Obstipation constipation Repeat KUB Will follow Assessment & Plan A&P Narrative # Acute GI bleed with hematemesis and melena in the setting of Eliquis for atrial fibrillation Agree with blood transfusion Resuscitate the patient Let the family decide how aggressive they want to be then I will make a decision when to do an upper endoscopy or not do that at all if she is going to be a comfort care Other medical problems include # Chronic atrial fibrillation on Eliquis which is being held # Essential hypertension # Diabetes mellitus type 2 # COPD # Elevated troponin # Lactic acidosis # ELBA with dehydration Thank you for the opportunity to participate in the care of this patient Time Spent With Patient Time: Total time spent is greater than 50% in coordination of care (as documented) at patient's floor/unit and/or counseling patient:
[2024-05-30] MEDS: MELATONIN 3 MG TABLET PO (20:24)
[2024-05-30] MEDS: INSULIN GLARGINE (Lantus) 5 UNIT/0.05 ML (PER 5 UNITS) 10 UNIT SC (21:27)
[2024-05-31] VITALS (7 sets, daily range): BP systolic 136–169; BP diastolic 64–106; PULSE 66–90; RESP 17–23; TEMP 36.3–36.8; O2SAT 94–96; BMI 27.1
[2024-05-31] MEDS: METOCLOPRAMIDE INJ 5 MG/ML VIAL 2 ML IVP ×3 (05:16→18:02)
[2024-05-31 05:59] LABS: Basophils % (Auto) 0 % (0-2.5); Eosinophils # (Auto) 0.2 Thou/mm3 (0.0-0.5); Eosinophils % (Auto) 2 % (0-10); Hematocrit 24.4 % (36.0-46.0); Immature Granulocytes % (Auto) 1 % (0-0); Immature Granulocytes Auto 0.04 Thou/mm3 (0.00-0.00); Lymphocytes # (Auto) 1.2 Thou/mm3 (1.0-4.8); Lymphocytes % (Auto) 16 % (10-50); Mean Corpuscular Hemoglobin 31.7 pg (25.0-35.0); Mean Corpuscular Volume 99 fL (80-100); Monocytes % (Auto) 13 % (0-12); Neutrophils # (Auto) 5.1 Thou/mm3 (1.8-7.7); Neutrophils % (Auto) 68 % (37-80); Nucleated Red Blood Cell % 0 /100 WBC (0); Platelet Count 134 Thou/mm3 (140-440); RDW Standard Deviation 62.1 fL (36.4-46.3); Red Blood Count 2.46 Miln/mm3 (4.00-5.20); White Blood Count 7.5 Thou/mm3 (3.6-11.0)
[2024-05-31 06:17] LABS: Hemoglobin 7.8 g/dL (12.0-16.0)
[2024-05-31 06:52] LABS: Alanine Aminotransferase 10 U/L (10-49); Albumin, Serum 3.3 gm/dL (3.4-4.8); Albumin/Globulin Ratio 1.5 (1.2-2.2); Alkaline Phosphatase 63 U/L (46-116); Anion Gap 6 (7-16); Aspartate Amino Transferase 21 U/L (0-34); BUN/Creatinine Ratio 23 Ratio (12-20); Bilirubin,Total 0.8 mg/dL (0.3-1.2); Blood Urea Nitrogen 34 mg/dL (9-23); Calcium 9.9 mg/dL (8.3-10.6); Calcium (Corrected) 10.5 mg/dL (8.5-10.1); Carbon Dioxide 30.6 mMol/L (20.0-31.0); Chloride 105 mMol/L (98-107); Creatinine (Component) 1.5 mg/dL (0.6-1.3); Estimated Creatinine Clearance 24.5 mL/min (>60); Globulin 2.2 gm/dL (2.3-3.5); Glucose 200 mg/dL (74-106); Osmolality,Calculated 296 (275-295); Phosphorous 2.7 mg/dL (2.4-5.1); Potassium 4.2 mMol/L (3.4-5.1); Sodium 142 mMol/L (136-145); Total Protein 5.5 gm/dL (5.7-8.2); eGFR 34 See Note
[2024-05-31] MEDS: INSULIN LISPRO (AdmeLOG) 1 UNIT/0.01 ML UNIT SC (07:44)
[2024-05-31] MEDS: SUCRALFATE SUSP 1 GM/10 ML UDC PO ×2 (07:46→11:40)
[2024-05-31] MEDS: ACETAMINOPHEN 325 MG TABLET 650 MG PO (08:55)
[2024-05-31] MEDS: PANTOPRAZOLE INJ 40 MG VIAL IVP (08:55)
[2024-05-31] MEDS: RINGERS LACTATED 1000 ML 500 ML 999 ML IV (09:02)
--- NOTE | 2024-05-31 11:00 | PD.RESDS ---
Planned Discharge Date 05/31/24 DS: Providers Provider Date of admission: 05/23/24 16:35 Primary care physician: Physician No Primary/Family Admitting Provider: Jacky Pat DO Attending Provider on Admission: Nate Loza MD Consults: 05/23/24 13:44 Consult to Gastroenterology Stat Comment: GIB Consulting Provider: Moe Knight 05/23/24 18:07 Referral Speech Therapy Routine Comment: 05/25/24 18:20 Referral Wound Care Routine Comment: DTI to Right foot and L great toe Attending Provider on DC: Billy Matos MD Discharging Provider: Billy Matos MD DS: Diagnosis Problem List Completed Was Problem List Reviewed/Reconciled?: Yes Hospital Course Hospital Course Hospital course: Patient was an 83-year-old female with HTN, chronic A-fib on Eliquis, T2DM, COPD who initially presented with acute encephalopathy and hematemesis/melena. She was transfused for acute blood loss anemia. Patient also had a UTI which was treated with Rocephin, and ELBA which improved with IV fluids. As POLST stated patient is DNR/DNI with selective treatment, daughter opted for conservative treatment initially. Ultimately patient underwent EGD which revealed a 12 mm nonbleeding gastric ulcer. On further discussion, patient did not appear to be a candidate for colonoscopy. Her hemoglobin was stable and with further discussion between family/GI, her Eliquis was resumed. She was initially deemed stable for discharge on 05/27 however due to constipation, discharge was delayed until patient had a bowel movement. Over the course of admission, patient had hospital-acquired delirium which improved after melatonin/full night of sleep. Patient was deemed stable for discharge. #Acute encephalopathy, likely hospital-acquired delirium #Constipation, resolved #Hematemesis, resolved #Melena, resolved #Acute blood loss anemia, resolved #Sepsis, resolved #UTI, resolved #ELBA on CKD 3, improved #Hyperkalemia, resolved #Hypercalcemia, resolved #Hypomagnesemia, resolved #Anion gap metabolic acidosis, resolved #Lactic acidosis, resolved #NSTEMI, likely type II from demand #HTN #A-fib #COPD, not in acute exacerbation #T2DM Patient seen and care discussed with my attending Dr. Loza. Billy Matos MD PGY-3 Status at Discharge Cognitive/behavioral status at discharge: AAOx3 Time Spent with Patient Time attestation: Total time spent providing and/or coordinating discharge services: Time spent: Greater than 30 minutes Exam Vital Signs Temp Pulse Resp BP Pulse Ox O2 Del Method O2 Flow Rate 97.7 F 90 18 169/106 H 94 L Room Air 1 05/31/24 08:00 05/31/24 08:13 05/31/24 08:13 05/31/24 08:00 05/31/24 08:13 05/31/24 08:00 05/29/24 16:00 Narrative Exam General: AAOx3, mentation significantly improved from 05/30, at baseline HEENT: NC/AT, bilateral sclera anicteric, no LAD Cardiovascular: regular rate and rhythm, S1/S2 present, no murmurs appreciated Pulmonary: clear to auscultation bilaterally, no rales/rhonchi/wheezes Abdominal: Mild TTP in epigastrium, soft, non-distended, normal bowel sounds present Musculoskeletal: Right lower extremity swollen ankle, bruising and third/fourth/fifth dorsal aspect of toes noted Skin: Chronic venous stasis Neuro: CN II-XII intact, no focal deficits Discharge Plan Plan Patient Disposition: Xfer [facility]illed [facility] Fac (SNF) Patient condition on transfer: Stable Care Plan Goals: - Restart taking eliquis 2.5 mg twice per day for stroke prevention - Be cautious for any signs of bleeding (red vomit, dark stools, blood in stools, dark/red urine) - Start taking ferrous sulfate 325 mg orally every other day - Start pantoprazole 40 mg orally twice per day - Follow-up with your PCP within 1 week of discharge - Continue all other home medications as prescribed - Return to the ED if symptoms worsen or recur Prescriptions/Referrals Prescriptions/Med Rec: New pantoprazole 40 mg tablet,delayed release (DR/EC) 40 mg PO BID 30 Days Qty: 60 0RF ferrous sulfate 325 mg (65 mg iron) tablet 325 mg PO Q OTHER DAY Qty: 30 0RF Continued insulin glargine [Lantus U-100 Insulin] 100 U/ML solution 18 unit Sub-Q QAM Qty: 0 Rx Instructions: Hold if BS<110. nitroglycerin [Nitrostat] 0.4 MG tablet, sublingual 0.4 mg SL PRN PRN (Reason: Chest Pain) Qty: 0 Rx Instructions: x15min prn. Culturelle 1 CAP capsule 1 cap PO QDAY Qty: 0 digoxin 125 MCG tablet 125 mcg PO UD Qty: 0 Rx Instructions: sunday thru sunday only. hydrocodone-acetaminophen 7.5-300 mg Tablet 1 tab PO Q6H PRN (Reason: Pain) Qty: 0 acetaminophen [Tylenol] 325 mg Tablet 650 mg PO Q6H PRN (Reason: pain or fever) ferrous sulfate 325 mg (65 mg iron) Tablet 325 mg PO BID insulin lispro [Humalog U-100 Insulin] 100 unit/mL Solution 10 unit subcut USEASDIRECTD Rx Instructions: Before lunch and dinner, hold for blood sugar<100. trolamine salicylate [Aspercreme] 10 % Cream 1 applic TOPICAL Q4H PRN (Reason: knee pain) cranberry extract 425 mg Capsule 425 mg PO QDAY magnesium hydroxide [Milk of Magnesia] 400 mg/5 mL Suspension 30 ml PO Q72H PRN (Reason: Constipation) metformin 1,000 mg Tablet 1,000 mg PO BID Fleet Enema 19-7 gram/118 mL Enema 118 ml OK Q72H PRN (Reason: Constipation) docusate sodium 250 mg Capsule 250 mg PO BID Saline Nasal Mist 0.65 % Aerosol,[place] 2 spray INTRANASAL BID verapamil 120 mg Tablet Extended Release 240 mg PO QDAY Qty: 60 0RF Eliquis 2.5 mg tablet 2.5 mg PO BID Qty: 30 0RF No Action verapamil 240 mg tablet extended release 240 mg PO QDAY Referrals: No Primary/Family,Physician [Primary Care Provider] - Patient/Caregiver Discharge Instructions Print Language: Georgian Stand Alone Forms: Natasha Award Info., Patient Portal Info Letter Discharge Order Discharge Orders: Discharge (Routine); Ordered 05/31/24 Ordered By: Billy Matos Quality Discharge Quality Measures VTE prophylaxis Attestestation Attestation I reviewed labs, imaging, EKG, home medications and prior available records. Face to face evaluation was performed by me. I have personally examined the patient and discussed assessment and plan with the IM team. I reviewed the resident note and agree with the plan with exceptions as below. Acute encephalopathy, likely hypoactive delirium GI bleed ELBA Acute UTI Atrial fibrillation with controlled ventricular response Thrombocytopenia Severe constipation Patient was delirious. Likely from constipation and sleep deprivation. Improved with sleep EGD showed gastric ulcer 12 mm. Continue PPI twice daily Family decided not to pursue with colonoscopy Monitor H&H: Stable Monitor kidney function: Creatinine improved. Could be at the new baseline as outpatient Platelet level is stable. Monitor for bleeding and monitor platelet level Resume Eliquis at 2.5 mg twice daily in the setting of GI bleed and age/creatinine clearance Continue constipation management as outpatient Time spent is 40 minutes. More than 50% of the time was spent on patient education and coordination of care.
[2024-05-31 12:43] LABS: Anion Gap 6 (7-16); BUN/Creatinine Ratio 22 Ratio (12-20); Blood Urea Nitrogen 31 mg/dL (9-23); Carbon Dioxide 31.5 mMol/L (20.0-31.0); Chloride 104 mMol/L (98-107); Creatinine (Component) 1.4 mg/dL (0.6-1.3); Estimated Creatinine Clearance 26.2 mL/min (>60); Glucose 122 mg/dL (74-106); Osmolality,Calculated 288 (275-295); Potassium 4.2 mMol/L (3.4-5.1); Sodium 141 mMol/L (136-145); eGFR 37 See Note
--- NOTE | 2024-05-31 15:46 | PC.SS ---
Gaming Cashier (PATRICE) Ann received informed during rounds that patient was going to discharge. PATRICE met with patient's daughter, Ronda whom was in agreement with discharging to [facility]. PATRICE contacted [facility] and spoke to [facility] to schedule transportation, reference number: [id number]. PATRICE contacted [facility] to schedule transportation for 1730. PATRICE notified Willam.
--- NOTE | 2024-05-31 17:57 | PD.IMPROG ---
Documentation for date of: 05/31/24 Subjective Subjective Interval history: Patient in the process of being discharged recent KUB shows still some stool but not impacted as much Continue bowel prep regimen on pulm discharge Exam Vital Signs Temp Pulse Resp BP Pulse Ox O2 Del Method O2 Flow Rate 97.6 F 67 23 H 142/88 H 96 Room Air 1 05/31/24 16:00 05/31/24 16:00 05/31/24 16:00 05/31/24 16:00 05/31/24 16:00 05/31/24 16:00 05/29/24 16:00 Objective Labs 05/31/24 05:30 05/31/24 12:05 Labs: Laboratory Results - last 24 hr 05/31/24 05/31/24 05:30 12:05 WBC 7.5 RBC 2.46 L Hgb 7.8 L Hct 24.4 L MCV 99 MCH 31.7 MCHC 32.0 RDW Std Deviation 62.1 H Plt Count 134 L Neut % (Auto) 68 Lymph % (Auto) 16 Shannon % (Auto) 13 H Eos % (Auto) 2 Baso % (Auto) 0 Neut # (Auto) 5.1 Lymph # (Auto) 1.2 Shannon # (Auto) 1.0 H Eos # (Auto) 0.2 Baso # (Auto) 0.0 Immature Gran # (Auto) 0.04 H Absolute Nucleated RBC 0.00 Immature Gran % 1 H Nucleated RBC % 0 Sodium 142 141 Potassium 4.2 D 4.2 Chloride 105 104 Carbon Dioxide 30.6 31.5 H Anion Gap 6 L 6 L BUN 34 H 31 H Creatinine 1.5 H 1.4 H Estim Creat Clear Calc 24.5 L 26.2 L eGFR 34 L 37 L BUN/Creatinine Ratio 23 H 22 H Glucose 200 H D 122 H D Calculated Osmolality 296 H 288 Calcium 9.9 10.0 Corrected Calcium 10.5 H Phosphorus 2.7 Magnesium 2.0 Total Bilirubin 0.8 AST 21 ALT 10 Alkaline Phosphatase 63 Total Protein 5.5 L Albumin 3.3 L Globulin 2.2 L Albumin/Globulin Ratio 1.5 Impressions Impression: Obstipation constipation Stool impaction Upon discharge patient can be followed by the PCP Assessment & Plan A&P Narrative # Acute GI bleed with hematemesis and melena in the setting of Eliquis for atrial fibrillation Agree with blood transfusion Resuscitate the patient Let the family decide how aggressive they want to be then I will make a decision when to do an upper endoscopy or not do that at all if she is going to be a comfort care Other medical problems include # Chronic atrial fibrillation on Eliquis which is being held # Essential hypertension # Diabetes mellitus type 2 # COPD # Elevated troponin # Lactic acidosis # ELBA with dehydration Thank you for the opportunity to participate in the care of this patient Time Spent With Patient Time: Total time spent is greater than 50% in coordination of care (as documented) at patient's floor/unit and/or counseling patient:
--- NOTE | 2024-06-05 09:22 | PC.SS ---
SS update: received call from Mishel Murrell at [facility] requesting patient's H&P to be faxed over as it was not received during patient's d/c. SS faxed over H&P and DC summary to facility.
== END 2024-05-31 18:53 | disposition skilled nursing facility (03) | DRG 871 ==
LOC: SERX 16:30 → SERHOLD 16:45 → S2NX 21:47 → S3SX 05-28 00:17
PROVIDERS: Specialist; Student in an Organized Health Care Education/Training Program; Admitting Provider Student in an Organized Health Care Education/Training Program; Emergency Provider Emergency Medicine; Visit Provider Student in an Organized Health Care Education/Training Program
PROC: (CPT 43239; principal; 2024-05-24 17:00)
DX: A41.9 Sepsis, unspecified organism (principal); G93.41 Metabolic encephalopathy; I21.A1 Myocardial infarction type 2; J18.9 Pneumonia, unspecified organism; K20.91 Esophagitis, unspecified with bleeding; K25.4 Chronic or unspecified gastric ulcer with hemorrhage; I48.20 Chronic atrial fibrillation, unspecified; D62 Acute posthemorrhagic anemia; N17.9 Acute kidney failure, unspecified; N39.0 Urinary tract infection, site not specified; G93.49 Other encephalopathy; E87.20 Acidosis, unspecified; J44.0 Chronic obstructive pulmonary disease with (acute) lower respiratory infection; F05 Delirium due to known physiological condition; I12.9 Hypertensive chronic kidney disease with stage 1 through stage 4 chronic kidney disease, or unspecified chronic kidney disease; E11.22 Type 2 diabetes mellitus with diabetic chronic kidney disease; E86.0 Dehydration; I95.9 Hypotension, unspecified; E87.5 Hyperkalemia; I45.10 Unspecified right bundle-branch block; E83.52 Hypercalcemia; N18.30 Chronic kidney disease, stage 3 unspecified; D69.6 Thrombocytopenia, unspecified; F03.90 Unspecified dementia, unspecified severity, without behavioral disturbance, psychotic disturbance, mood disturbance, and anxiety; E83.42 Hypomagnesemia; Z79.01 Long term (current) use of anticoagulants; Z66 Do not resuscitate; Z79.4 Long term (current) use of insulin; Z90.710 Acquired absence of both cervix and uterus; Z79.84 Long term (current) use of oral hypoglycemic drugs
CPT/HCPCS: 36415; 36430; 70450; 71045; 73620; 74018; 80048; 80053; 80069; 81001; 82270; 82271; 82728; 83540; 83550; 83605; 83735; 84100; 84145; 84484; 85014; 85018; 85025; 85610; 85730; 86850; 86900; 86901; 86923; 87040; 87081; 87086; 87400; 87811; 92610; 93005; 94640; 96365; 96366; 96367; 96374; 99291; A4649; A9270; J0696; J1815; J2250; J2354; J2470; J2765; J2916; J3010; J3475; J3490; J7030; J7050; J7120; P9016